=== PATIENT | female | born 1955 | race Two or more races ===

== ENCOUNTER → 2019-01-08 | Outpatient (CLI) | payer OTHER ==
[2019-01-08 14:59] LABS: Basophils # (auto) 0.1 uL; Eosinophils # (auto) 0.3 uL; Lymphocytes # (auto) 2.8 uL; Monocytes # (auto) 0.7 uL; Nucleated Red Blood Cells % 0.1 %
[2019-01-08 15:01] LABS: Basophils % (auto) 0.6 % (0.0-2.0); Eosinophils % (auto) 3.2 % (0.0-7.0); Hemoglobin 15.1 g/dL (12.2-16.2); Lymphocytes % (auto) 31.1 % (10.0-50.0); Mean Corpuscular Hgb Conc. 35.1 g/dL (32.0-36.0); Mean Corpuscular Volume 99.8 fL (80.0-100.0); Monocytes % (auto) 8.4 % (0.0-12.0); Neutrophils % (auto) 56.7 % (37.0-80.0); Platelet Count (auto) 211 10^3/uL (140-450); Red Blood Cells 4.31 10^6/uL (4.0-5.20); Red Cell Distribution Width 12.6 % (11.8-14.3); White Blood Cell 8.9 10^3/uL (4.4-10.8)
[2019-01-08 15:20] LABS: Calcium 9.5 mg/dL (8.5-10.1)
[2019-01-08 15:25] LABS: Bilirubin, Total 0.7 mg/dL (0.2-1.0); Total Protein 8.2 g/dL (6.4-8.2)
== END | disposition home or self-care (01) ==
LOC: LAB 14:48
PROVIDERS: ATTEND Physician Assistant
DX: K21.9 Gastro-esophageal reflux disease without esophagitis (principal); R14.0 Abdominal distension (gaseous); I10 Essential (primary) hypertension; Z83.3 Family history of diabetes mellitus; Z83.49 Family history of other endocrine, nutritional and metabolic diseases
CPT/HCPCS: 36415; 80053; 80061; 83036; 84443; 85025

== ENCOUNTER → 2020-01-29 | Outpatient (CLI) | payer OTHER ==
[2020-01-29 14:39] LABS: Basophils # (auto) 0.1 10 ^3/uL (0-0.2); Basophils % (auto) 0.7 % (0.0-2.0); Eosinophils # (auto) 0.4 10 ^3/uL (0-0.8); Lymphocytes # (auto) 2.9 10 ^3/uL (0.4-5.4); Monocytes # (auto) 0.9 10 ^3/uL (0-1.3); Nucleated Red Blood Cells % 0.1 %
[2020-01-29 14:41] LABS: Hemoglobin 14.4 g/dL (12.2-16.2); Lymphocytes % (auto) 30.2 % (10.0-50.0); Mean Corpuscular Hemoglobin 35.1 pg (28.0-32.0); Mean Corpuscular Hgb Conc. 34.3 g/dL (32.0-36.0); Mean Corpuscular Volume 102.2 fL (80.0-100.0); Monocytes % (auto) 9.5 % (0.0-12.0); Neutrophils # (auto) 5.4 10 ^3/uL (1.6-8.6); Neutrophils % (auto) 55.6 % (37.0-80.0); Platelet Count (auto) 199 10^3/uL (140-450); Red Blood Cells 4.11 10^6/uL (4.0-5.20); Red Cell Distribution Width 12.7 % (11.8-14.3); White Blood Cell 9.7 10^3/uL (4.4-10.8)
[2020-01-29 14:55] LABS: Urine Bacteria NONE SEEN /hpf (None Seen); Urine Blood Negative /uL (Negative); Urine Specific Gravity 1.002 (1.001-1.035); Urine WBC 2 /hpf (0 - 5)
[2020-01-29 15:14] LABS: Albumin 3.7 g/dL (3.4-5.0); Calcium 9.2 mg/dL (8.5-10.1); Potassium 4.3 mmol/L (3.5-5.1)
[2020-01-29 15:19] LABS: BUN/Creatinine Ratio 11.3; Bilirubin, Total 0.6 mg/dL (0.2-1.0)
== END | disposition home or self-care (01) ==
LOC: LAB 14:27
PROVIDERS: ATTEND Physician Assistant
DX: Z00.00 Encounter for general adult medical examination without abnormal findings (principal); E11.9 Type 2 diabetes mellitus without complications; I10 Essential (primary) hypertension; E78.49 Other hyperlipidemia; K76.0 Fatty (change of) liver, not elsewhere classified; Z83.49 Family history of other endocrine, nutritional and metabolic diseases
CPT/HCPCS: 36415; 80053; 80061; 81001; 83036; 85025

== ENCOUNTER → 2022-08-15 | Outpatient (CLI) | payer OTHER ==
[2022-08-15 07:14] LABS: Eosinophils # (auto) 0.4 10 ^3/uL (0-0.8); Hemoglobin 15.1 g/dL (12.2-16.2); Neutrophils # (auto) 3.5 10 ^3/uL (1.6-8.6); Nucleated Red Blood Cells % 0.1 %; White Blood Cell 6.9 10^3/uL (4.4-10.8)
[2022-08-15 07:16] LABS: Basophils # (auto) 0 10 ^3/uL (0-0.2); Basophils % (auto) 0.7 % (0.0-2.0); Eosinophils % (auto) 5.4 % (0.0-7.0); Hematocrit 45.3 % (36.0-46.0); Lymphocytes # (auto) 2.3 10 ^3/uL (0.4-5.4); Lymphocytes % (auto) 33.4 % (10.0-50.0); Mean Corpuscular Hemoglobin 34.2 pg (28.0-32.0); Mean Corpuscular Hgb Conc. 33.4 g/dL (32.0-36.0); Mean Corpuscular Volume 102.5 fL (80.0-100.0); Monocytes # (auto) 0.7 10 ^3/uL (0-1.3); Monocytes % (auto) 9.9 % (0.0-12.0); Neutrophils % (auto) 50.6 % (37.0-80.0); Red Blood Cells 4.42 10^6/uL (4.0-5.20); Red Cell Distribution Width 12.8 % (11.8-14.3)
[2022-08-15 13:54] LABS: Albumin 3.8 g/dL (3.4-5.0); Bilirubin, Total 0.5 mg/dL (0.2-1.0); Calcium 9.9 mg/dL (8.5-10.1); Potassium 4.7 mmol/L (3.5-5.1); Total Protein 8.1 g/dL (6.4-8.2)
[2022-08-15 14:20] LABS: BUN/Creatinine Ratio 12.5
== END | disposition home or self-care (01) ==
LOC: LAB 06:49
PROVIDERS: ATTEND Nurse Practitioner Family
DX: Z00.00 Encounter for general adult medical examination without abnormal findings (principal); I10 Essential (primary) hypertension; E78.49 Other hyperlipidemia; E11.9 Type 2 diabetes mellitus without complications
CPT/HCPCS: 36415; 80053; 80061; 82043; 82274; 83036; 84439; 84443; 85025

== ENCOUNTER → 2023-08-18 | Outpatient (CLI) | payer OTHER ==
[2023-08-18 15:37] LABS: Basophils # (auto) 0.1 10 ^3/uL (0-0.2); Eosinophils # (auto) 0.2 10 ^3/uL (0-0.8); Eosinophils % (auto) 2.1 % (0.0-7.0); Hematocrit 44.3 % (36.0-46.0); Lymphocytes # (auto) 3.4 10 ^3/uL (0.4-5.4); Mean Corpuscular Hemoglobin 34.4 pg (28.0-32.0); Mean Corpuscular Hgb Conc. 33.9 g/dL (32.0-36.0); Mean Corpuscular Volume 101.7 fL (80.0-100.0); Monocytes % (auto) 9.7 % (0.0-12.0); Neutrophils # (auto) 5.3 10 ^3/uL (1.6-8.6); Neutrophils % (auto) 53.2 % (37.0-80.0); Nucleated Red Blood Cells % 0.1 %; Red Blood Cells 4.36 10^6/uL (4.0-5.20); Red Cell Distribution Width 13.1 % (11.8-14.3); White Blood Cell 9.9 10^3/uL (4.4-10.8)
[2023-08-18 16:25] LABS: Alanine Aminotransferase 41 U/L (7-40); Alkaline Phosphatase 102 U/L (46-116); Anion Gap 9 (5-15); Aspartate Aminotransferase 32 U/L (13-40); BUN/Creatinine Ratio 8.8 (10.0-20.0); Bilirubin, Total 0.7 mg/dL (0.2-1.0); Blood Urea Nitrogen 8 mg/dL (9-23); Calcium 10.2 mg/dL (8.5-10.1); Carbon Dioxide 26 mmol/L (20-30); Chloride 101 mmol/L (98-107); Cholesterol 149 mg/dL (< 200); Glucose 66 mg/dL (74-106); HDL Cholesterol 59 mg/dL (40-59); LDL Cholesterol 77 mg/dL (< 100); Potassium 4.1 mmol/L (3.5-5.1); Sodium 136 mmol/L (136-145); Triglycerides 112 mg/dL (< 150)
== END | disposition home or self-care (01) ==
LOC: LAB 15:24
DX: I10 Essential (primary) hypertension (principal); E11.9 Type 2 diabetes mellitus without complications
CPT/HCPCS: 36415; 80053; 80061; 83036; 84439; 84443; 85025

== ENCOUNTER → 2024-09-30 | Outpatient (CLI) | payer OTHER ==
[2024-09-30 15:14] LABS: Basophils % (auto) 0.6 % (0.0-2.0); Eosinophils # (auto) 0.2 10 ^3/uL (0-0.8); Lymphocytes # (auto) 2.4 10 ^3/uL (0.4-5.4); Monocytes # (auto) 0.8 10 ^3/uL (0-1.3); Neutrophils % (auto) 58.1 % (37.0-80.0); White Blood Cell 8.2 10^3/uL (4.4-10.8)
[2024-09-30 15:16] LABS: Basophils # (auto) 0.1 10 ^3/uL (0-0.2); Eosinophils % (auto) 2.3 % (0.0-7.0); Hematocrit 44.6 % (36.0-46.0); Hemoglobin 15.1 g/dL (12.2-16.2); Lymphocytes % (auto) 29.5 % (10.0-50.0); Mean Corpuscular Hemoglobin 34.3 pg (28.0-32.0); Mean Corpuscular Hgb Conc. 33.9 g/dL (32.0-36.0); Mean Corpuscular Volume 101.4 fL (80.0-100.0); Monocytes % (auto) 9.5 % (0.0-12.0); Neutrophils # (auto) 4.8 10 ^3/uL (1.6-8.6); Platelet Count (auto) 201 10^3/uL (140-450)
[2024-09-30 15:44] LABS: Micro Albumin < 3.0 mg/L (<30.0)
[2024-09-30 15:46] LABS: Alanine Aminotransferase 39 U/L (7-40); Albumin 4.8 g/dL (3.2-4.8); Alkaline Phosphatase 110 U/L (46-116); Anion Gap 11 (5-15); Aspartate Aminotransferase 35 U/L (13-40); BUN/Creatinine Ratio 12.4 (10.0-20.0); Bilirubin, Total 0.6 mg/dL (0.2-1.0); Blood Urea Nitrogen 11 mg/dL (9-23); Calcium 10.3 mg/dL (8.7-10.4); Carbon Dioxide 24 mmol/L (20-31); Chloride 101 mmol/L (98-107); Cholesterol 155 mg/dL (< 200); Glucose 78 mg/dL (74-106); HDL Cholesterol 60 mg/dL (40-59); LDL Cholesterol 82 mg/dL (< 100); Potassium 4.5 mmol/L (3.5-5.1); Total Protein 7.8 g/dL (5.7-8.2)
[2024-09-30 15:48] LABS: Sodium 136 mmol/L (136-145); Triglycerides 179 mg/dL (< 150)
== END | disposition home or self-care (01) ==
LOC: LAB 14:52
PROVIDERS: ATTEND Nurse Practitioner Family
DX: I10 Essential (primary) hypertension (principal); E11.9 Type 2 diabetes mellitus without complications
CPT/HCPCS: 36415; 80053; 80061; 82043; 82306; 82570; 83036; 84443; 85025

== ENCOUNTER 2025-06-11 18:22 | Inpatient (IN) | payer MEDICARE, OTHER ==
[~2025-06-11] VITALS: Ht 147.3 cm; Wt 62.6 kg
[~2025-06-11 18:22] MED LIST: METF-370 PO
--- NOTE | 2025-06-11 18:30 | ED.PDOC ---
HPI Comments HPI: 70 year old female presents to the ED via EMS with a chief complaint of chest pain onset today (06/11/25) about 1 hour prior to ED arrival. Per EMS, patient was home, had just ate dinner when she began experiencing substernal, chest pain radiating to her neck. Prior to EMS arrival patient took Aspirin 324 mg, was given 50 mcg Fentanyl in route to ED. Initial chest pain was a 10/10, currently a 7/10 after medication. Patient describes pain as a pressure sensation. Denies shortness of breath, dizziness, fever, chills, cough, cold, congestion, abdominal pain, nausea, vomiting, numbness/tingling. No other symptoms or modifying factors present at this time. Initial Vitals BP: 167/103 HR: 84 RR: 16 O2 Sat: 100% Past Medical history: HTN, HLD, DM, thyroid disease Past Surgical history: Denies Medications: Amlodipine, metformin, lisinopril, Jardiance Social History: Denies smoking, ETOH, and drug use. Allergies: NKDA michelle: cp to neck. HPI: Poor Historian. REVIEW OF SYSTEMS: CONSTITUTIONAL: Denies acute: fever, diaphoresis, chills, HEAD: Denies acute: headache, photophobia Eyes: Denies acute: Double vision, vision loss, eye pain, eye discharge. EARS: Denies acute: tinnitus, hearing loss, ear discharge, ear pain, THROAT: Denies acute: sore throat, swelling, difficulty swallowing , pain with swallowing, change in voice. NECK: Denies acute: neck pain, neck swelling, stiff neck. HEART: Denies acute : palpitations, LUNGS: Denies acute: SOB, wheezing, cough, hemoptysis ABDOMEN: Denies acute: abdominal pain, Nausea, Vomiting, diarrhea, melena , hematemesis, hematochezia SKIN: Denies acute: rash, redness, lesions, itchiness. EXTREMITIES: Denies acute: calf pain, numbness, tingling, weakness, denies pain in extremity. Denies acute: Low back pain. Neuro: Denies acute: focal neurological deficit, motor or sensory focal neurological deficit, tremors, seizure like activity, confusion, dizziness, change in mental status, loss of bowel or bladder function, cauda equina like symptoms. : Denies acute: dysuria, hematuria, flank pain, increase in urinary frequency. PSYCH: Denies acute: hallucination, suicidal ideation, homicidal ideation. FEMALE: Denies acute: abnormal vaginal bleeding, foul odor, unusual discharge. PHYSICAL EXAM: General: -----moderate---acute distress, awake and alert. Head: normocephalic, atraumatic. Neck: supple, trachea is midline, no swelling. Throat: Normal phonation. Eyes:, no erythema, no purulent discharge, no proptosis, no icterus. Heart: regular rate, regular rhythm, no significant murmur appreciated. Lungs: no apparent respiratory distress, Able to speak in full sentences. No wheezing, no rhonchi, no crackles. No stridors Clear to auscultation bilaterally. Abdomen: non tender to palpation, non distended, soft, no guarding, no rebound, + bowel sounds. Neuro: Awake, Alert, oriented to name, self, situation, follows commands GCS=15. Speech is normal. Skin: no petechia, no purpura, no cyanosis, non-pale, not jaundice. Lower extremities: --no - Pitting edema no deformity, no focal swelling, no calf TTP. Makes eye contact. moves all four extremities. Face: no apparent facial droop. ED COURSE: DISCLAIMER: This medical document was created using an electronic medical record system with voice recognition software and computerized dictation system. Although this document has been carefully reviewed, there might still be some phonetic and typographical errors. Occasional wrong-word or "sound-alike" substitutions may have occurred due to the inherent limitations of voice recognition software. These areas are purely typographical due to imperfections of the software programs and do not reflect any compromise in the patient's medical care. Please read the chart carefully and recognize, using context, where these substitutions have occurred. Time Seen by MD: 18:25 Reviewed Notes: Medications, Allergies Allergies: Coded Allergies: NO KNOWN ALLERGIES (Unverified , 06/11/25) Information Source: Patient, Emergency Med Personnel Mode of Arrival: EMS Severity: Moderate Timing: Hours Duration: Since onset Prehospital treatment: Pain Meds (50 mcg Fentanyl) Location: Substernal Radiation: Neck Quality: Pressure Onset: At Rest Cardiac Risk Factors: Hyperlipidemia, HTN, Diabetes PE Risk Factors: None History of: Aspirin Modifying Factors: Nothing Past Medical History PAST MEDICAL HISTORY: DM, High Lipids, HTN, Thyroid Surgical History: Denies all surgeries SALES TRAINING REPRESENTATIVE History: No Pertinent SALES TRAINING REPRESENTATIVE History Family History Family History: Reviewed,noncontributory to illness, No family hx of Cancer, No family hx of DM, No family hx of Heart nicole, No family hx of HTN, No family hx ofKidney nicole, No family hx of Liver nicole, No family hx of Lung nicole, No family hx of Stroke Social History Smoker: Non-Smoker Alcohol: Denies ETOH Use Drugs: Denies Drug Use Lives In: Home Was a procedure done? Was a procedure done?: No X-Ray, Labs, Meds, VS Vital Signs Date Time Temp Pulse Resp B/P (MAP) Pulse Ox O2 Delivery O2 Flow Rate FiO2 06/11/25 19:23 92 06/11/25 19:11 158/86 06/11/25 18:35 91 18 95 Room Air* 0 21 06/11/25 18:35 97.8 91 18 158/79 (105) 96 97.8 06/11/25 18:24 93 06/11/25 18:22 97.8 84 16 167/103 100 97.8 Lab Test 06/11/25 18:51 Range/Units White Blood Count 6.8 4.4-10.8 10^3/uL Red Blood Count 4.12 4.0-5.20 10^6/uL Hemoglobin 14.2 12.2-16.2 g/dL Hematocrit 41.4 36.0-46.0 % Mean Corpuscular Volume 100.5 H 80.0-100.0 fL Mean Corpuscular Hemoglobin 34.4 H 28.0-32.0 pg Mean Corpuscular Hemoglobin Concent 34.2 32.0-36.0 g/dL Red Cell Distribution Width 13.1 11.8-14.3 % Platelet Count 174 140-450 10^3/uL Mean Platelet Volume 9.7 6.9-10.8 fL Neutrophils (%) (Auto) 58.0 37.0-80.0 % Lymphocytes (%) (Auto) 26.9 10.0-50.0 % Monocytes (%) (Auto) 10.1 0.0-12.0 % Eosinophils (%) (Auto) 4.3 0.0-7.0 % Basophils (%) (Auto) 0.7 0.0-2.0 % Neutrophils # (Auto) 4.0 1.6-8.6 10 ^3/uL Lymphocytes # (Auto) 1.8 0.4-5.4 10 ^3/uL Monocytes # (Auto) 0.7 0-1.3 10 ^3/uL Eosinophils # (Auto) 0.3 0-0.8 10 ^3/uL Basophils # (Auto) 0 0-0.2 10 ^3/uL Nucleated Red Blood Cells 0.2 % Sodium Level Pending Potassium Level Pending Chloride Level Pending Carbon Dioxide Level Pending Anion Gap Pending Blood Urea Nitrogen Pending Creatinine Pending Glomerular Filtration Rate Calc Pending BUN/Creatinine Ratio Pending Serum Glucose Pending Calcium Level Pending Total Bilirubin Pending Aspartate Amino Transferase (AST) Pending Alanine Aminotransferase (ALT) Pending Alkaline Phosphatase Pending Troponin I High Sensitivity Pending B-Type Natriuretic Peptide 53.55 0-100 pg/mL Total Protein Pending Albumin Pending Current Medications Medications (Trade) Dose Ordered Sig/Reggie Route Start Time Stop Time Status Last Admin Nitroglycerin (Ntrostat Sublingual) 0.4 mg ONCE ONCE SL 06/11/25 19:00 06/11/25 19:01 DC 06/11/25 19:11 Sodium Chloride 1,000 ml @ 1,000 mls/hr Q1H ONCE IV 06/11/25 19:00 06/11/25 19:59 06/11/25 19:12 [place] [id number] Ph: [phone] DIAGNOSTIC IMAGING Diagnostic Imaging Report : [id number] Signed PATIENT: CAS CORTEZ ACCT: [id number] UNIT: [id number] : 1955 LOC: ER ROOM / BED: / AGE / SEX: 70 / F ADM STATUS: REG ER SERVICE 26 ORDERING PHYSICIAN: ALEXANDRE SINGH DO PROCEDURE(s): CXRP - CHEST PORTABLE REASON: cp ORDER NUMBER(s): [id number], ACCESSION NUMBER(s): [id number] CHEST RADIOGRAPH REASON FOR EXAM: Chest pain COMPARISON: XY CHEST TWO VIEWS ROUTINE on DOS: 07/07/24, CXR2 on DOS: 02/02/22, CHEST TWO VIEWS ROUTINE on DOS: 02/02/22, CHEST TWO VIEWS ROUTINE on DOS: 02/06/21 TECHNIQUE: One view of the chest is provided FINDINGS: The cardiomediastinal silhouette is borderline enlarged. There is pulmonary venous congestion. There is no significant pleural effusion. There is mild pulmonary edema. There is no lobar consolidation. There is no pneumothorax. No acute osseous abnormality is identified. IMPRESSION: Borderline cardiomegaly. Mild pulmonary edema. Correlate clinically for possible cardiac decompensation. ATED BY: INDIO HAMILTON MD DICTATED DATE/TIME: 06/11/251923 SIGNED BY: INDIO HAMILTON MD SIGNED DATE/TIME: 06/11/251923 CC: Time of 1ST Reevaluation: 18:55 Reevaluation 1ST: Unchanged Patient Education/Counseling: Diagnosis, Treatment Family Education/Counseling: No Family Present Departure 1 Departure Time of Disposition: 18:48 Impression: Primary Impression: Chest pain Disposition: ADMITTED INPATIENT Admit to: Tele Condition: Guarded Discharged With: Self Critical Care Note Critical Care Time?: No I personally scribed for ALEXANDRE SINGH DO ([email or web address]) on 06/11/25 at 18:30. Electronically submitted by Venessa Sullivan ([email or web address]). I personally scribed for ALEXANDRE SINGH DO ([email or web address]) on 06/11/25 at 19:29. Electronically submitted by Venessa Sullivan ([email or web address]). ALEXANDRE SINGH DO Jun 11, 2025 18:30
[2025-06-11 18:35] VITALS: PULSE 91; RESP 18; O2SAT 95
--- NOTE | 2025-06-11 19:03 | ECG ---
[facility] Test Date: 2025-06-11 Test Time: 18:24:17 Pat Name: CAS CORTEZ Department: [facility] ED Patient ID: [facility]-[id number] Room: Gender: F Automatic Clipper And Stripper: KYLIE : 1955 Requested By: ALEXANDRE SINGH Order Number: [id number] Reading MD: Measurements Intervals [place] Rate: 93 P: 79 HI: 143 QRS: 82 QRSD: 92 T: 77 QT: 350 QTc: 436 Interpretive Statements Sinus rhythm Borderline right axis deviation Low voltage, precordial leads Please click the below link to view image of tracing.
[2025-06-11 19:06] LABS: Hematocrit 41.4 % (36.0-46.0); Hemoglobin 14.2 g/dL (12.2-16.2); Mean Corpuscular Hemoglobin 34.4 pg (28.0-32.0); Mean Corpuscular Volume 100.5 fL (80.0-100.0); Nucleated Red Blood Cells % 0.2 %
[2025-06-11] MEDS: NITROGLYCERIN 0.4 MG SL TAB SL ONE (19:11)
[2025-06-11] MEDS: SODIUM CHLORIDE 0.9% 1,000 ML IV ONE (19:12)
[2025-06-11 19:25] LABS: Albumin 4.3 g/dL (3.2-4.8); Anion Gap 13 (5-15); BUN/Creatinine Ratio 10.6 (10.0-20.0); Blood Urea Nitrogen 11 mg/dL (9-23); Calcium 9.0 mg/dL (8.7-10.4); Carbon Dioxide 22 mmol/L (20-31); Chloride 101 mmol/L (98-107); Potassium 3.7 mmol/L (3.5-5.1); Sodium 136 mmol/L (136-145); Total Protein 7.2 g/dL (5.7-8.2)
--- NOTE | 2025-06-11 19:27 | DVH ---
CHEST RADIOGRAPH REASON FOR EXAM: Chest pain COMPARISON: XY CHEST TWO VIEWS ROUTINE on DOS: 07/07/24, CXR2 on DOS: 02/02/22, CHEST TWO VIEWS ROUTIN E on DOS: 02/02/22, CHEST TWO VIEWS ROUTINE on DOS: 02/06/21 TECHNIQUE: One view of the chest is provided FINDINGS: The cardiomediastinal silhouette is borderline enlarged. There is pulmonary venous congest ion. There is no significant pleural effusion. There is mild pulmonary edema. There is no lobar con solidation. There is no pneumothorax. No acute osseous abnormality is identified. IMPRESSION: Borderline cardiomegaly. Mild pulmonary edema. Correlate clinically for possible cardiac decompensa tion.
[2025-06-11 19:32] LABS: Alanine Aminotransferase 43 U/L (7-40); Alkaline Phosphatase 133 U/L (46-116); Bilirubin, Total 0.2 mg/dL (0.2-1.0); Glucose 312 mg/dL (74-106)
--- NOTE | 2025-06-11 19:46 | ECG ---
[facility] Test Date: 2025-06-11 Test Time: 19:23:08 Pat Name: CAS CORTEZ Department: [facility] ED Patient ID: [facility]-[id number] Room: Gender: F Director Of Surgery: MARY : 1955 Requested By: ALEXANDRE SINGH Order Number: [id number] Reading MD: Measurements Intervals [place] Rate: 92 P: 81 [place]: 142 QRS: -34 QRSD: 97 T: -32 QT: 377 QTc: 467 Interpretive Statements Sinus rhythm Left axis deviation Low voltage, precordial leads Repol abnrm, severe global ischemia (LM/MVD) Please click the below link to view image of tracing.
[2025-06-11] MEDS ORDERED: NITROGLYCERIN 0.4 MG SL TAB SL PRN (20:00)
[2025-06-11] MEDS ORDERED: DEXTROSE (50%) 50ML SYRG IV PRN (20:30)
[2025-06-11] MEDS: MORPHINE SULFATE INJ 2 MG/ml SYRG IV PRN (21:17)
[2025-06-11 21:20] VITALS: BP 119/63; PULSE 97; RESP 18; TEMP 97.9; O2SAT 96
[2025-06-11 21:48] LABS: Urine Protein, UAD Negative (Negative)
[2025-06-11] MEDS: ATORVASTATIN 20 MG TAB PO SCH (22:14)
[2025-06-11] MEDS ORDERED: BENZ100C97 PO (22:31)
[2025-06-11] MEDS ORDERED: LOVA10TA54 PO (22:31)
[2025-06-11] MEDS ORDERED: LOS25T PO (22:31)
[2025-06-11] MEDS ORDERED: EMPA1TAB PO (22:31)
[2025-06-11] MEDS ORDERED: DOCU-265 PO (22:31)
[2025-06-11] MEDS ORDERED: AMLO1TAB23 PO (22:31)
[2025-06-11] MEDS ORDERED: GLIP10TA9 PO (22:31)
[2025-06-11] MEDS: ACCU-CHEK COMFORT CURVE STRIP VI SCH (23:27)
[2025-06-11] MEDS: InsuLIN REG 1unit/0.01ml Soln (100units/ml) SC SCH (23:29)
[2025-06-12] VITALS (7 sets, daily range): BP systolic 105–121; BP diastolic 67–78; PULSE 89–114; RESP 16–18; TEMP 97.6–98.2; O2SAT 95–99
--- NOTE | 2025-06-12 00:13 | DVHHP2 ---
History of Present Illness Reason for Visit: Chest pain History of Present Illness 70-year-old female presents for evaluation of chest pain. Patient reports a one month history of intermittent chest pain. She states today symptoms became more constant so she presented for further evaluation. She distress the pain as substernal pressure-like with radiation to her neck. Denies shortness or breath, nausea or vomiting. No cough or fever. No other acute complaints reported. Past Medical History Dyslipidemia, diabetes mellitus, hypertension Past Surgical History Denies Family History Noncontributory Smoke: No ALCOHOL: none Drugs: None Lives: with Family Review of Systems Review of Systems Review of systems are currently negative otherwise addressed in HPI. Allergies: Coded Allergies: NO KNOWN ALLERGIES (Unverified , 06/11/25) Medications Current Medications Medications Dose Ordered Sig/Reggie Route Start Time Stop Time Status Last Admin Dose Admin Nitroglycerin 0.4 mg Q5MINP PRN SL 06/11/25 20:00 Morphine Sulfate 2 mg Q30M PRN IV 06/11/25 20:00 06/11/25 21:17 2 MG Aspirin 162 mg DAILY PO 06/12/25 10:00 Atorvastatin Calcium 10 mg HS PO 06/11/25 22:00 06/11/25 22:14 10 MG Empaglifozin 10 mg DAILY PO 06/12/25 10:00 Amlodipine Besylate 10 mg DAILY PO 06/12/25 10:00 Losartan Potassium 25 mg DAILY PO 06/12/25 10:00 Diagnostic Test (Pha) 1 strip Q6HR 06/12/25 00:00 06/11/25 23:27 1 STRIP Insulin Human Regular Q6HR SC 06/12/25 00:00 06/11/25 23:29 8 UNITS Dextrose 50 ml UD PRN IV 06/11/25 20:30 Ondansetron HCl 4 mg Q4HP PRN IV 06/11/25 20:30 Acetaminophen 650 mg Q6HP PRN PO 06/11/25 20:30 Exam Vital Signs Vital Signs Date Time Temp Pulse Resp B/P (MAP) Pulse Ox O2 Delivery O2 Flow Rate FiO2 06/11/25 21:47 97 18 119/63 06/11/25 21:20 97.9 96 97.9 06/11/25 21:20 Room Air* 0 21 Exam Gen: 70-year-old female in mild distress Skin: Warm, dry, normal color and texture, no rash. HEENT: Normocephalic atraumatic, mucous membranes moist and pink. Neck: Cervical and supraclavicular nodes normal without enlargement, trachea is midline, thyroid gland is normal without masses. Pulmonary: Clear to auscultation and percussion bilaterally. Cardiac: Regular rate and rhythm. No murmur Abdomen: Soft, nontender, nondistended, bowel sounds present all 4 quadrants, no guarding, no rigidity, no organomegaly. Extremities: No cyanosis, clubbing, no edema Neuro: Cranial nerves II through XII grossly intact, normal affect and speech, no focal motor deficits. Labs/Xrays ORDERING PHYSICIAN: ALEXANDRE SINGH DO PROCEDURE(s): CXRP - CHEST PORTABLE REASON: cp ORDER NUMBER(s): [id number], ACCESSION NUMBER(s): [id number] CHEST RADIOGRAPH REASON FOR EXAM: Chest pain COMPARISON: XY CHEST TWO VIEWS ROUTINE on DOS: 07/07/24, CXR2 on DOS: 02/02/22, CHEST TWO VIEWS ROUTINE on DOS: 02/02/22, CHEST TWO VIEWS ROUTINE on DOS: 02/06/21 TECHNIQUE: One view of the chest is provided FINDINGS: The cardiomediastinal silhouette is borderline enlarged. There is pulmonary venous congestion. There is no significant pleural effusion. There is mild pulmonary edema. There is no lobar consolidation. There is no pneumothorax. No acute osseous abnormality is identified. IMPRESSION: Borderline cardiomegaly. Mild pulmonary edema. Correlate clinically for possible cardiac decompensation. Labs Test 06/11/25 23:23 06/11/25 22:19 06/11/25 18:51 06/11/25 18:27 Range/Units POC Glucose 329 H 70-106 mg/dl Troponin I High Sensitivity 353 *H </=34 ng/L White Blood Count 6.8 4.4-10.8 10^3/uL Red Blood Count 4.12 4.0-5.20 10^6/uL Hemoglobin 14.2 12.2-16.2 g/dL Hematocrit 41.4 36.0-46.0 % Mean Corpuscular Volume 100.5 H 80.0-100.0 fL Mean Corpuscular Hemoglobin 34.4 H 28.0-32.0 pg Mean Corpuscular Hemoglobin Concent 34.2 32.0-36.0 g/dL Red Cell Distribution Width 13.1 11.8-14.3 % Platelet Count 174 140-450 10^3/uL Mean Platelet Volume 9.7 6.9-10.8 fL Neutrophils (%) (Auto) 58.0 37.0-80.0 % Lymphocytes (%) (Auto) 26.9 10.0-50.0 % Monocytes (%) (Auto) 10.1 0.0-12.0 % Eosinophils (%) (Auto) 4.3 0.0-7.0 % Basophils (%) (Auto) 0.7 0.0-2.0 % Neutrophils # (Auto) 4.0 1.6-8.6 10 ^3/uL Lymphocytes # (Auto) 1.8 0.4-5.4 10 ^3/uL Monocytes # (Auto) 0.7 0-1.3 10 ^3/uL Eosinophils # (Auto) 0.3 0-0.8 10 ^3/uL Basophils # (Auto) 0 0-0.2 10 ^3/uL Nucleated Red Blood Cells 0.2 % Sodium Level 136 136-145 mmol/L Potassium Level 3.7 3.5-5.1 mmol/L Chloride Level 101 98-107 mmol/L Carbon Dioxide Level 22 20-31 mmol/L Anion Gap 13 5-15 Blood Urea Nitrogen 11 9-23 mg/dL Creatinine 1.04 H 0.550-1.02 mg/dL Glomerular Filtration Rate Calc 59 >90 mL/min BUN/Creatinine Ratio 10.6 10.0-20.0 Serum Glucose 312 H 74-106 mg/dL Calcium Level 9.0 8.7-10.4 mg/dL Total Bilirubin 0.2 0.2-1.0 mg/dL Aspartate Amino Transferase (AST) 42 H 13-40 U/L Alanine Aminotransferase (ALT) 43 H 7-40 U/L Alkaline Phosphatase 133 H 46-116 U/L B-Type Natriuretic Peptide 53.55 0-100 pg/mL Total Protein 7.2 5.7-8.2 g/dL Albumin 4.3 3.2-4.8 g/dL Urine Color Colorless Yellow Urine Clarity Clear Clear Urine pH 5.5 5.0-9.0 Urine Specific [place] 1.020 1.001-1.035 Urine Protein Negative Negative Urine Ketones Negative Negative Urine Blood Negative Negative /uL Urine Nitrite Negative Negative Urine Bilirubin Negative Negative Urine Urobilinogen Normal Negative mg/dL Urine Leukocyte Esterase Negative Negative /uL Urine RBC <1 0 - 4 /hpf Urine Microscopic WBC 1 0-5 /HPF Urine Squamous Epithelial Cells Few <5 /hpf Urine Bacteria None seen None Seen /hpf Urine Glucose 4+ H Normal mg/dL SEPSIS Sepsis Screen Date sepsis recognized/suspect: Jun 11, 2025 Time Sepsis recognized/suspect: 1908 Recent Procedure: No On Antibiotic Therapy: No Respiratory Rate >20: No Heart Rate >90: No Temp<36 C (96.8 F) or >38.3 C: No SBP <90 or MAP <65 mmHG: No New Acute Mental Status Change: No Is the patient on CPAP, BIPAP,: No Physician Orders Electrocardigram (06/11/25 21:26) Body Finisher (06/11/25 ) Chest Portable (06/11/25 18:27) Electrocardigram (06/11/25 18:27) Electrocardigram (06/11/25 19:27) Electrocardigram (06/11/25 21:27) Admit (06/11/25 19:59) Nitroglycerin Sublingual (Ntrostat Subli (06/11/25 20:00) Morphine Sulfate Injection (06/11/25 20:00) Stat Ekg For Chest Pain (06/11/25 19:59) Notify Md Of Changes From Base (06/11/25 19:59) Ballet Dancer For 24 Hours (06/11/25 19:59) Emergency Dysrhythmia Protocol (06/11/25 19:59) Rhythm Strips Once Every Shift (06/11/25 19:59) Oxygen By Nasal Cannula (06/11/25 19:59) * Cardiology Consult (06/11/25 20:23) Aspirin Tablet (06/12/25 10:00) Atorvastatin (Lipitor) (06/11/25 22:00) Empagliflozin (Jardiance) (06/12/25 10:00) Amlodipine Tablet (Norvasc Tablet) (06/12/25 10:00) Losartan Tablet (Cozaar Tablet) (06/12/25 10:00) Basic Metabolic Panel (06/12/25 04:00) Glucose Blood (Accu-Chek Comfort Curve T (06/12/25 00:00) Insulin R (Human) (Insulin R) (06/12/25 00:00) Dextrose 50% Syringe (06/11/25 20:30) Ondansetron Hcl (Zofran) (06/11/25 20:30) Cardiac Diet-2gna,Lofat,Lochol (06/12/25 Breakfast) Echo 2d Mode Cardiac Dop (06/11/25 20:23) Condition: Fair (06/11/25 20:23) Acetaminophen Tablet (Tylenol Tablet) (06/11/25 20:30) Bedrest With Bathroom Privileg (06/11/25 20:23) Thyroid Stimulating Hormone (06/12/25 00:09) Lipid Panel (06/12/25 00:09) Vital Signs Date Time Temp Pulse Resp B/P (MAP) Pulse Ox O2 Delivery O2 Flow Rate FiO2 06/11/25 21:47 97 18 119/63 06/11/25 21:20 97.9 97 18 119/63 (81) 96 97.9 06/11/25 21:20 97 18 96 Room Air* 0 21 06/11/25 21:17 101 18 140/81 06/11/25 21:07 97.8 101 18 140/81 (100) 99 97.8 06/11/25 20:11 125/68 06/11/25 20:00 97 06/11/25 20:00 87 18 125/68 (87) 97 06/11/25 19:30 Room Air* 0 21 06/11/25 19:23 92 06/11/25 19:11 158/86 06/11/25 19:09 97.7 88 20 158/86 (110) 96 97.7 06/11/25 18:35 91 18 95 Room Air* 0 21 06/11/25 18:35 97.8 91 18 158/79 (105) 96 97.8 06/11/25 18:24 93 06/11/25 18:22 97.8 84 16 167/103 100 97.8 Laboratory Tests Test 06/11/25 18:51 White Blood Count 6.8 10^3/uL (4.4-10.8) Medications Medications Dose Ordered Sig/Reggie Route Start Time Stop Time Status Last Admin Dose Admin Aspirin 162 mg ONCE ONCE PO 06/11/25 20:30 06/11/25 21:09 DC 06/11/25 20:30 162 MG Atorvastatin Calcium 10 mg HS PO 06/11/25 22:00 06/11/25 22:14 10 MG Diagnostic Test (Pha) 1 strip Q6HR 06/12/25 00:00 06/11/25 23:27 1 STRIP Insulin Human Regular Q6HR SC 06/12/25 00:00 06/11/25 23:29 8 UNITS Morphine Sulfate 2 mg Q30M PRN IV 06/11/25 20:00 06/11/25 21:17 2 MG Nitroglycerin 0.4 mg ONCE ONCE SL 06/11/25 19:00 06/11/25 19:01 DC 06/11/25 19:11 0.4 MG Sodium Chloride 1,000 ml @ 1,000 mls/hr Q1H ONCE IV 06/11/25 19:00 06/11/25 19:59 DC 06/11/25 19:12 1,000 MLS/HR Assessment/Plan Assessment/Plan Assessment Chest pain Elevated troponin rule out NSTEMI transaminitis Uncontrolled diabetes mellitus Acute kidney injury Plan Admit the patient to telemetry to the hospitalist Cardiology consultation ACS protocol Resume home medications Continue treatment per orders. Plan discussed with: Patient My Orders Orders - PATO TARANGO Procedure Category Date Status Time Admit ADMIT 06/11/25 Transmitted 19:59 Nitroglycerin PHA 06/11/25 In Process Sublingual (Ntrostat 20:00 Morphine Sulfate PHA 06/11/25 In Process Injection 20:00 Stat Ekg For Chest MARA 06/11/25 In Process Pain 19:59 Notify Of Changes MARA 06/11/25 In Process From Base 19:59 Ballet Dancer For MARA 06/11/25 In Process 24 Hours 19:59 Emergency Dysrhythmia MARA 06/11/25 In Process Protocol 19:59 Rhythm Strips Once MARA 06/11/25 In Process Every Shift 19:59 Oxygen By Nasal RT 06/11/25 Transmitted Cannula 19:59 * Cardiology Consult CONS 06/11/25 Transmitted 20:23 Aspirin Tablet PHA 06/12/25 In Process 10:00 Atorvastatin (Lipitor) PHA 06/11/25 In Process 22:00 Empagliflozin PHA 06/12/25 In Process (Jardiance) 10:00 Amlodipine Tablet PHA 06/12/25 In Process (Norvasc Tablet) 10:00 Losartan Tablet PHA 06/12/25 In Process (Cozaar Tablet) 10:00 Basic Metabolic Panel LAB 06/12/25 Logged 04:00 Glucose Blood PHA 06/12/25 In Process (Accu-Chek Comfort 00:00 Insulin R (Human) PHA 06/12/25 In Process (Insulin R) 00:00 Dextrose 50% Syringe PHA 06/11/25 In Process 20:30 Ondansetron Hcl PHA 06/11/25 In Process (Zofran) 20:30 Cardiac DIET 06/12/25 Transmitted Diet-2gna,Lofat,Lochol Breakfast Echo 2d Mode Cardiac US 06/11/25 Logged DOP 20:23 Condition: Fair MARA 06/11/25 In Process 20:23 Acetaminophen Tablet PHA 06/11/25 In Process (Tylenol Tablet) 20:30 Bedrest With Bathroom MARA 06/11/25 In Process Privileg 20:23 Thyroid Stimulating LAB 06/12/25 Verified Hormone 00:09 Lipid Panel LAB 06/12/25 Verified 00:09 Date of Service: Jun 11, 2025 Billing Provider: PATO TARANGO Common Visit Codes: [id number] INP/OBS CARE (HIGH) PATO TARANGO Jun 12, 2025 00:13
[2025-06-12 05:58] LABS: Chloride 104 mmol/L (98-107); Potassium 3.7 mmol/L (3.5-5.1); Sodium 140 mmol/L (136-145)
[2025-06-12 05:59] LABS: Anion Gap 12 (5-15); Calcium 9.1 mg/dL (8.7-10.4); Carbon Dioxide 24 mmol/L (20-31)
[2025-06-12 06:04] LABS: BUN/Creatinine Ratio 10.5 (10.0-20.0); Glucose 86 mg/dL (74-106)
[2025-06-12 06:09] LABS: Blood Urea Nitrogen 8 mg/dL (9-23)
[2025-06-12 06:24] LABS: Cholesterol 169 mg/dL (< 200); Triglycerides 215 mg/dL (< 150)
[2025-06-12 06:25] LABS: HDL Cholesterol 57 mg/dL (40-59)
--- NOTE | 2025-06-12 08:17 | DVHINCON2 ---
Date Seen: Jun 12, 2025 Referring Physician RICK Garcia Reason for Consultation Chest pain History of Present Illness This is a 70-year-old female who presented to the emergency room via EMS via EMS with a chief complaint of chest pain since 06/11/2025 at 4:00 p.m. Describes her chest pain as retrosternal, pressure-like, and radiating to the anterior neck area for which she called 911. EN route to the hospital she was medicated with ASA 324 mg and fentanyl 50 mcg x 1 with some relief of symptoms. She has undergone multiple 12 lead electrocardiograms revealing progressive ST-T-wave segment changes mostly to inferior leads. Serial troponin levels are trending up with latest > 2700s ng/L. Reports a significant familial history for cardiovascular disease including her mother with a CABG in her 70s y.o., father with myocardial infarction, and youngest sibling with PTCA and stent placement in his 40s y.o. Significant medical history includes hypertension, dyslipidemia, cdh-cbccktd-wcilykftk diabetes mellitus, and obesity. Past Medical History Past medical history reviewed. No other significant than mentioned above. Past Surgical History Past surgical history reviewed. No other significant than mentioned above. Family History: Cardiovascular disease G8 MOTHER G8 FATHER Diabetes mellitus G8 MOTHER Family History Family history reviewed. See HPI. Social History Denies the use of illicit drugs, alcohol, or tobacco use. Allergies: Coded Allergies: NO KNOWN ALLERGIES (Unverified , 06/11/25) Home Meds Reported Medications Docusate Sodium (Docusate Sodium) 100 Mg Cap, 1 CAP PO QHSP PRN for FOR CONSTIPATION 06/11/25 Losartan Potassium (Losartan Potassium) 25 Mg Tab, 1 TAB PO DAILY 06/11/25 Glipizide (Glipizide) 10 Mg Tab, 1 TAB PO BID 06/11/25 Benzonatate (Benzonatate) 100 Mg Cap, CAP PO 06/11/25 Lovastatin (Lovastatin) 10 Mg Tab, 1 TAB PO DAILY 06/11/25 Metformin Hydrochloride (Metformin Hcl) 500 Mg Tab, 2 TAB PO 06/11/25 Amlodipine Besylate (Amlodipine Besylate) 10 Mg Tab, 1 TAB PO DAILY 06/11/25 Empagliflozin (Jardiance) 10 Mg Tab, 1 TAB PO DAILY 06/11/25 Home Meds Home medications reviewed. Current Medications Current Medications Medications (Trade) Dose Ordered Sig/Reggie Route PRN Reason Start Time Stop Time Status Last Admin Nitroglycerin (Ntrostat Sublingual) 0.4 mg Q5MINP PRN SL FOR CHEST PAIN 06/11/25 20:00 Morphine Sulfate 2 mg Q30M PRN IV FOR CHEST PAIN 06/11/25 20:00 06/11/25 21:17 Aspirin 162 mg DAILY PO 06/12/25 10:00 Atorvastatin Calcium (Lipitor) 10 mg HS PO 06/11/25 22:00 06/11/25 22:14 Empaglifozin (Jardiance) 10 mg DAILY PO 06/12/25 10:00 Amlodipine Besylate (Norvasc Tablet) 10 mg DAILY PO 06/12/25 10:00 Losartan Potassium (Cozaar Tablet) 25 mg DAILY PO 06/12/25 10:00 Diagnostic Test (Pha) (Accu-Chek Comfort Curve T) 1 strip Q6HR 06/12/25 00:00 06/12/25 05:09 Insulin Human Regular (InsuLIN R) Q6HR SC 06/12/25 00:00 06/11/25 23:29 Dextrose 50 ml UD PRN IV Blood Sugar LESS THAN 60 06/11/25 20:30 Ondansetron HCl (Zofran) 4 mg Q4HP PRN IV NAUSEA / VOMITING 06/11/25 20:30 Acetaminophen (Tylenol Tablet) 650 mg Q6HP PRN PO PAIN SCALE 1-3 OR TEMP>100.4 06/11/25 20:30 Review of Systems Constitutional: No symptom reported Ears, Nose, & Throat: No symptom reported Eyes: No symptom reported Neurological: No symptoms reported Pulmonary/Respiratory: No symptom reported Cardiovascular: Chest pain Gastrointestinal: No symptom reported Genitourinary: No symptom reported Musculoskeletal: No symptom reported Skin: No symptom reported Psychiatric: No symptom reported Endocrine: No symptom reported Hemotologic/Lymphatic: No symptom reported Vital Signs Vital Signs Date Time Temp Pulse Resp B/P (MAP) Pulse Ox O2 Delivery O2 Flow Rate FiO2 06/12/25 05:00 98.2 105 18 118/73 (88) 98 98.2 06/11/25 21:20 Room Air* 0 21 Physical Exam General Appearance: Cooperative. Well developed. Obese. In no acute distress Head Exam: Normal inspection Neck Exam: Normal inspection. Non-tender. Normal alignment Pulmonary/Respiratory: Chest non-tender. Clear bilateral breath sounds Cardiovascular/Chest: Regular rate and rhythm. S1, S2. Sinus rhythm with significant ST-T wave segment changes. No murmurs. No JVD. Peripheral Pulses: 2+ Radial (R). 2+ Radial (L). 2+ Pedal (R). 2+ Pedal (L) Abdominal Exam: Normal bowel sounds. Soft. Nontender. No hepatospenomegaly. No masses Ankle Exam: Negative ankle edema Lower extremities: Negative lower extremity edema Neuro/Mental Status: A&O x4. Coherent Thoughts/Psych: Normal thought pattern. Appropriate mood and affect. Good judgement and insight Appearance: In no acute distress Skin Exam: Normal inspection. Normal color. Warm. Dry Labs/Diagnostic Data Labs Test 06/12/25 05:20 06/12/25 05:04 06/11/25 22:19 06/11/25 18:51 Range/Units Sodium Level 140 136-145 mmol/L Potassium Level 3.7 3.5-5.1 mmol/L Chloride Level 104 98-107 mmol/L Carbon Dioxide Level 24 20-31 mmol/L Anion Gap 12 5-15 Blood Urea Nitrogen 8 L 9-23 mg/dL Creatinine 0.76 0.550-1.02 mg/dL Glomerular Filtration Rate Calc 85 >90 mL/min BUN/Creatinine Ratio 10.5 10.0-20.0 Serum Glucose 86 74-106 mg/dL Calcium Level 9.1 8.7-10.4 mg/dL Triglycerides Level 215 H < 150 mg/dL Cholesterol Level 169 < 200 mg/dL LDL Cholesterol 95 < 100 mg/dL HDL Cholesterol 57 40-59 mg/dL Thyroid Stimulating Hormone (TSH) 1.55 0.55-4.78 uIU/mL POC Glucose 93 70-106 mg/dl Troponin I High Sensitivity 353 *H </=34 ng/L White Blood Count 6.8 4.4-10.8 10^3/uL Red Blood Count 4.12 4.0-5.20 10^6/uL Hemoglobin 14.2 12.2-16.2 g/dL Hematocrit 41.4 36.0-46.0 % Mean Corpuscular Volume 100.5 H 80.0-100.0 fL Mean Corpuscular Hemoglobin 34.4 H 28.0-32.0 pg Mean Corpuscular Hemoglobin Concent 34.2 32.0-36.0 g/dL Red Cell Distribution Width 13.1 11.8-14.3 % Platelet Count 174 140-450 10^3/uL Mean Platelet Volume 9.7 6.9-10.8 fL Neutrophils (%) (Auto) 58.0 37.0-80.0 % Lymphocytes (%) (Auto) 26.9 10.0-50.0 % Monocytes (%) (Auto) 10.1 0.0-12.0 % Eosinophils (%) (Auto) 4.3 0.0-7.0 % Basophils (%) (Auto) 0.7 0.0-2.0 % Neutrophils # (Auto) 4.0 1.6-8.6 10 ^3/uL Lymphocytes # (Auto) 1.8 0.4-5.4 10 ^3/uL Monocytes # (Auto) 0.7 0-1.3 10 ^3/uL Eosinophils # (Auto) 0.3 0-0.8 10 ^3/uL Basophils # (Auto) 0 0-0.2 10 ^3/uL Nucleated Red Blood Cells 0.2 % Total Bilirubin 0.2 0.2-1.0 mg/dL Aspartate Amino Transferase (AST) 42 H 13-40 U/L Alanine Aminotransferase (ALT) 43 H 7-40 U/L Alkaline Phosphatase 133 H 46-116 U/L B-Type Natriuretic Peptide 53.55 0-100 pg/mL Total Protein 7.2 5.7-8.2 g/dL Albumin 4.3 3.2-4.8 g/dL Test 06/11/25 18:27 Range/Units Urine Color Colorless Yellow Urine Clarity Clear Clear Urine pH 5.5 5.0-9.0 Urine Specific [place] 1.020 1.001-1.035 Urine Protein Negative Negative Urine Ketones Negative Negative Urine Blood Negative Negative /uL Urine Nitrite Negative Negative Urine Bilirubin Negative Negative Urine Urobilinogen Normal Negative mg/dL Urine Leukocyte Esterase Negative Negative /uL Urine RBC <1 0 - 4 /hpf Urine Microscopic WBC 1 0-5 /HPF Urine Squamous Epithelial Cells Few <5 /hpf Urine Bacteria None seen None Seen /hpf Urine Glucose 4+ H Normal mg/dL Assessment Acute myocardial infarction Rule out structural heart disease Pertinent family history for cardiovascular disease Pbi-lqgilsy-moxujflpk diabetes mellitus Hypertension Dyslipidemia Obesity Plan/Recommendation (Dr. Green) Case discussed in full detail with Dr. Green. Scheduled for urgent cardiac catheterization and coronary angiogram at first available. All risks and benefits of the procedure were discussed with the patient who agrees to proceed with intervention. All questions answered. In the meantime, initiate heparin drip per pharmacy protocol and obtain a transthoracic echocardiogram to evaluate cardiac function. Continue single-antiplatelet therapy and lipid lowering agent. Monitor ECG changes closely and notify accordingly. Continue chest pain protocol. Thank you for allowing us to participate in this patient's care. Please call if you have any questions or concerns. Critical care time: 45 min. This medical document was created using an [employer] medical record system with voice recognition software and computerized dictation system. Although this document has been carefully reviewed, there might still be some phonetic and typographical errors. Occasional wrong-word or ``sound-alike substitutions may have occurred due to the inherent limitations of voice recognition software. These areas are purely typographical due to imperfections of the software programs and do not reflect any compromise in the patient's medical care. Please read the chart carefully and recognize, using context, where these substitutions have occurred. Plan discussed with: Patient, Spouse, Other NYHA Physical activity limitations: NA Date of Service: Jun 12, 2025 Billing Provider: SASHA DEE Cardiology Common Codes: [id number] CARE 30-74 MIN SASHA DEE Jun 12, 2025 08:17
[2025-06-12] MEDS: ONDANSETRON HCL 4 MG/2 ML VIAL IV PRN (08:29)
[2025-06-12] MEDS: EMPAGLIFLOZIN 10 MG TAB PO SCH (08:30)
[2025-06-12] MEDS: LOSARTAN POTASSIUM 25 MG TAB PO SCH (08:31)
[2025-06-12 09:24] LABS: Hematocrit 43.1 % (36.0-46.0); Hemoglobin 14.7 g/dL (12.2-16.2); Mean Corpuscular Hemoglobin 34.0 pg (28.0-32.0); Mean Corpuscular Volume 100.0 fL (80.0-100.0); Nucleated Red Blood Cells % 0.2 %
[2025-06-12 09:51] LABS: INR 1.04 (0.9-1.15); Partial Thromboplastin Time 25.0 SEC (24.5-34.5); Prothrombin Time 11.0 sec (9.3-11.8)
[2025-06-12] MEDS: HEPARIN DRIP/D5W 100UNITS/ML 250 ML IV SCH (10:08)
[2025-06-12] MEDS: HEPARIN SODIUM (PORCINE) 5000 UNITS/ML 1ML VIAL IV ONE (10:09)
--- NOTE | 2025-06-12 10:18 | CONS ---
Pharmacy Clinical Information: HEPARIN PERACS PROTOCOL: New Heparin order received, labs drawn at 0902 on 06/12/25. Bolus of 3900 units + initial drip rate of 800 units per hour (8mL/hr) Orders read back and confirmed with RN Charity @0933. Next APTT scheduled for 1600. ALEXIS CARY PHARMACIST Jun 12, 2025 10:18
[2025-06-12] MEDS: METOPROLOL SUCCINATE XL 50 MG TAB PO SCH (12:18)
--- NOTE | 2025-06-12 13:18 | DVHPN2 ---
Reviewed: Care Plan, H&P, Labs, Medications, Previous Orders, Radiology Changes from previous H/P or p: No Changes Objective Vitals Vital Signs Date Time Temp Pulse Resp B/P (MAP) Pulse Ox O2 Delivery O2 Flow Rate FiO2 06/12/25 12:59 97.6 91 16 107/69 (82) 99 97.6 06/12/25 08:00 Room Air* 0 21 Intake/Output Intake and Output 06/12/25 07:00 Intake Total 1000 ml Balance 1000 ml Intake Oral 0 ml IV Total 1000 ml Medications Current Medications Medications Dose Ordered Sig/Reggie Route Start Time Stop Time Status Last Admin Dose Admin Morphine Sulfate 2 mg Q30M PRN IV 06/11/25 20:00 06/12/25 08:30 2 MG Aspirin 162 mg DAILY PO 06/12/25 10:00 06/12/25 08:32 162 MG Empaglifozin 10 mg DAILY PO 06/12/25 10:00 06/12/25 08:30 10 MG Losartan Potassium 25 mg DAILY PO 06/12/25 10:00 06/12/25 08:31 25 MG Diagnostic Test (Pha) 1 strip Q6HR 06/12/25 00:00 06/12/25 12:13 1 STRIP Insulin Human Regular Q6HR SC 06/12/25 00:00 06/11/25 23:29 8 UNITS Dextrose 50 ml UD PRN IV 06/11/25 20:30 Ondansetron HCl 4 mg Q4HP PRN IV 06/11/25 20:30 06/12/25 08:29 4 MG Acetaminophen 650 mg Q6HP PRN PO 06/11/25 20:30 Heparin Sodium/ Dextrose 250 ml @ 8 mls/hr Q24H IV 06/12/25 08:30 06/12/25 10:08 8 MLS/HR Atorvastatin Calcium 40 mg HS PO 06/12/25 22:00 Metoprolol Succinate 25 mg DAILY PO 06/12/25 10:00 06/12/25 12:18 25 MG Laboratory Results Laboratory Tests 06/12/25 05:20 Chemistry Test 06/11/25 18:51 06/12/25 05:20 Albumin 4.3 g/dL (3.2-4.8) Calcium Level 9.0 mg/dL (8.7-10.4) 9.1 mg/dL (8.7-10.4) Total Protein 7.2 g/dL (5.7-8.2) Magnesium Level 2.0 mg/dL (1.6-2.6) Coagulation Test 06/12/25 09:02 Prothrombin Time 11.0 sec (9.3-11.8) Prothrombin Time INR 1.04 (0.9-1.15) Activated Partial Thromboplast Time 25.0 SEC (24.5-34.5) Lipid panel Test 06/12/25 05:20 Cholesterol Level 169 mg/dL (< 200) HDL Cholesterol 57 mg/dL (40-59) Triglycerides Level 215 mg/dL (< 150) H Cardiac Markers Test 06/11/25 18:51 B-Type Natriuretic Peptide 53.55 pg/mL (0-100) LFT Test 06/11/25 18:51 Alanine Aminotransferase (ALT) 43 U/L (7-40) H Alkaline Phosphatase 133 U/L (46-116) H Aspartate Amino Transferase (AST) 42 U/L (13-40) H Total Bilirubin 0.2 mg/dL (0.2-1.0) HgA1c, TSH Test 06/12/25 05:20 Hemoglobin A1c 7.7 % A1C (<5.7) H Thyroid Stimulating Hormone (TSH) 1.55 uIU/mL (0.55-4.78) Urinalysis Test 06/11/25 18:27 Urine Color Colorless (Yellow) Urine Clarity Clear (Clear) Urine pH 5.5 (5.0-9.0) Urine Specific [place] 1.020 (1.001-1.035) Urine Protein Negative (Negative) Urine Ketones Negative (Negative) Urine Blood Negative /uL (Negative) Urine Nitrite Negative (Negative) Urine Bilirubin Negative (Negative) Urine Urobilinogen Normal mg/dL (Negative) Urine Leukocyte Esterase Negative /uL (Negative) Urine RBC <1 /hpf (0 - 4) Urine Microscopic WBC 1 /HPF (0-5) Urine Squamous Epithelial Cells Few /hpf (<5) Urine Bacteria None seen /hpf (None Seen) Urine Glucose 4+ mg/dL (Normal) H Labs and/or images reviewed: Labs reviewed by me, Image(s) reviewed by me Assessment/Plan Assessment/Plan Acute myocardial infarction , troponin 3200, treatment per ACS protocol, cardiology consult by Dr. Green appreciated, getting emergent left heart catheterization today , heparin drip, metoprolol, Jardiance Rule out structural heart disease Pertinent family history for cardiovascular disease Zlz-tltetzy-bydcugorn diabetes mellitus Hypertension Dyslipidemia: Lipitor Obesity Time spent 65 minutes Advanced care planning time 20 minutes Patient is full code Plan discussed with: Patient Date of Service: Jun 12, 2025 Billing Provider: MARLENE NASCIMENTO MD Common Visit Codes: [id number] CARE 30-74 MIN MARLENE NASCIMENTO MD Jun 12, 2025 13:18
[2025-06-12 15:49] LABS: INR 1.09 (0.9-1.15); Partial Thromboplastin Time 58.3 SEC (24.5-34.5); Prothrombin Time 11.5 sec (9.3-11.8)
[2025-06-12] MEDS: ACETAMINOPHEN 325 MG TAB PO PRN (20:15)
[2025-06-12] MEDS: ATORVASTATIN 20 MG TAB PO SCH (21:24)
[2025-06-12 21:45] LABS: INR 1.09 (0.9-1.15); Partial Thromboplastin Time 52.2 SEC (24.5-34.5); Prothrombin Time 11.5 sec (9.3-11.8)
--- NOTE | 2025-06-12 23:39 | DVHINCON2 ---
Date Seen: Jun 12, 2025 Referring Physician RICK Garcia Reason for Consultation Chest pain History of Present Illness This is a 70-year-old female with a past medical history of hypertension, dyslipidemia, byk-mszefkt-yluggzvmv diabetes mellitus, and obesity who presented to the emergency room via EMS via EMS with a complaint of chest pain since 06/11/2025 at 4:00 p.m. Patient describes her chest pain as retrosternal, pres sure-like, and radiating to the anterior neck area for which she called 911. EN route to the hospital she was medicated with ASA 324 mg and fentanyl 50 mcg x 1 with some relief of symptoms. She has undergone multiple 12 lead electrocardiograms revealing progressive ST-T-wave segment changes mostly to inferior leads. Serial troponin levels are trending up with latest > 2700s ng/L. Patient reports a significant familial history for cardiovascular disease including her mother with a CABG in her 70s y.o., father with myocardial infarction, and youngest sibling with PTCA and stent placement in his 40s y.o. Chest x-ray showed borderline cardiomegaly and mild pulmonary edema. Patient was admitted to the hospital. I am asked to consult on this patient. Past Medical History Past medical history reviewed. No other significant than mentioned above. Past Surgical History Past surgical history reviewed. No other significant than mentioned above. Family History: Cardiovascular disease G8 MOTHER G8 FATHER Diabetes mellitus G8 MOTHER Allergies: Coded Allergies: NO KNOWN ALLERGIES (Unverified , 06/11/25) Home Meds Reported Medications Docusate Sodium (Docusate Sodium) 100 Mg Cap, 1 CAP PO QHSP PRN for FOR CONSTIPATION 06/11/25 Losartan Potassium (Losartan Potassium) 25 Mg Tab, 1 TAB PO DAILY 06/11/25 Glipizide (Glipizide) 10 Mg Tab, 1 TAB PO BID 06/11/25 Benzonatate (Benzonatate) 100 Mg Cap, CAP PO 06/11/25 Lovastatin (Lovastatin) 10 Mg Tab, 1 TAB PO DAILY 06/11/25 Metformin Hydrochloride (Metformin Hcl) 500 Mg Tab, 2 TAB PO BIDWM for 90 Days, #360 06/11/25 Amlodipine Besylate (Amlodipine Besylate) 10 Mg Tab, 1 TAB PO DAILY 06/11/25 Empagliflozin (Jardiance) 10 Mg Tab, 1 TAB PO DAILY 06/11/25 Current Medications Current Medications Medications (Trade) Dose Ordered Sig/Reggie Route PRN Reason Start Time Stop Time Status Last Admin Nitroglycerin (Ntrostat Sublingual) 0.4 mg Q5MINP PRN SL FOR CHEST PAIN 06/11/25 20:00 06/12/25 09:35 DC Morphine Sulfate 2 mg Q30M PRN IV FOR CHEST PAIN 06/11/25 20:00 06/12/25 08:30 Aspirin 162 mg DAILY PO 06/12/25 10:00 06/12/25 08:32 Atorvastatin Calcium (Lipitor) 10 mg HS PO 06/11/25 22:00 06/12/25 09:35 DC 06/11/25 22:14 Empaglifozin (Jardiance) 10 mg DAILY PO 06/12/25 10:00 06/12/25 08:30 Amlodipine Besylate (Norvasc Tablet) 10 mg DAILY PO 06/12/25 10:00 06/12/25 09:35 DC 06/12/25 08:31 Losartan Potassium (Cozaar Tablet) 25 mg DAILY PO 06/12/25 10:00 06/12/25 08:31 Diagnostic Test (Pha) (Accu-Chek Comfort Curve T) 1 strip Q6HR 06/12/25 00:00 06/12/25 12:13 Insulin Human Regular (InsuLIN R) Q6HR SC 06/12/25 00:00 06/11/25 23:29 Dextrose 50 ml UD PRN IV Blood Sugar LESS THAN 60 06/11/25 20:30 Ondansetron HCl (Zofran) 4 mg Q4HP PRN IV NAUSEA / VOMITING 06/11/25 20:30 06/12/25 08:29 Acetaminophen (Tylenol Tablet) 650 mg Q6HP PRN PO PAIN SCALE 1-3 OR TEMP>100.4 06/11/25 20:30 Heparin Sodium/ Dextrose 250 ml @ 8 mls/hr Q24H IV 06/12/25 08:30 06/12/25 10:08 Atorvastatin Calcium (Lipitor) 40 mg HS PO 06/12/25 22:00 Metoprolol Succinate (Toprol Xl) 25 mg DAILY PO 06/12/25 10:00 06/12/25 12:18 Review of Systems Constitutional: No symptom reported Ears, Nose, & Throat: No symptom reported Eyes: No symptom reported Neurological: No symptoms reported Pulmonary/Respiratory: No symptom reported Cardiovascular: Chest pain Gastrointestinal: No symptom reported Genitourinary: No symptom reported Musculoskeletal: No symptom reported Skin: No symptom reported Psychiatric: No symptom reported Endocrine: No symptom reported Hemotologic/Lymphatic: No symptom reported Vital Signs Vital Signs Date Time Temp Pulse Resp B/P (MAP) Pulse Ox O2 Delivery O2 Flow Rate FiO2 06/12/25 12:59 97.6 91 16 107/69 (82) 99 97.6 06/12/25 08:00 Room Air* 0 21 Physical Exam GENERAL: Alert and oriented x 3. No acute distress. Obese. EYES: PERRL, EOMI. Anicteric. HENT: Moist mucous membranes. LUNGS: Clear to auscultation bilaterally. CARDIOVASCULAR: Regular rate and rhythm. ABDOMEN: Soft, nontender and nondistended. EXTREMITIES: No edema. NEUROLOGIC: No focal neurological deficits. SKIN: Warm, dry. Labs/Diagnostic Data Labs Test 06/12/25 12:07 06/12/25 11:56 06/12/25 09:02 06/12/25 05:20 Range/Units POC Glucose 136 H 70-106 mg/dl Troponin I High Sensitivity 3226 *H </=34 ng/L Prothrombin Time 11.0 9.3-11.8 sec Prothrombin Time INR 1.04 0.9-1.15 Activated Partial Thromboplast Time 25.0 24.5-34.5 SEC White Blood Count 8.5 4.4-10.8 10^3/uL Red Blood Count 4.31 4.0-5.20 10^6/uL Hemoglobin 14.7 12.2-16.2 g/dL Hematocrit 43.1 36.0-46.0 % Mean Corpuscular Volume 100.0 80.0-100.0 fL Mean Corpuscular Hemoglobin 34.0 H 28.0-32.0 pg Mean Corpuscular Hemoglobin Concent 34.0 32.0-36.0 g/dL Red Cell Distribution Width 13.1 11.8-14.3 % Platelet Count 197 140-450 10^3/uL Mean Platelet Volume 10.5 6.9-10.8 fL Neutrophils (%) (Auto) 57.6 37.0-80.0 % Lymphocytes (%) (Auto) 27.5 10.0-50.0 % Monocytes (%) (Auto) 11.4 0.0-12.0 % Eosinophils (%) (Auto) 2.7 0.0-7.0 % Basophils (%) (Auto) 0.8 0.0-2.0 % Neutrophils # (Auto) 4.9 1.6-8.6 10 ^3/uL Lymphocytes # (Auto) 2.3 0.4-5.4 10 ^3/uL Monocytes # (Auto) 1.0 0-1.3 10 ^3/uL Eosinophils # (Auto) 0.2 0-0.8 10 ^3/uL Basophils # (Auto) 0.1 0-0.2 10 ^3/uL Nucleated Red Blood Cells 0.2 % Sodium Level 140 136-145 mmol/L Potassium Level 3.7 3.5-5.1 mmol/L Chloride Level 104 98-107 mmol/L Carbon Dioxide Level 24 20-31 mmol/L Anion Gap 12 5-15 Blood Urea Nitrogen 8 L 9-23 mg/dL Creatinine 0.76 0.550-1.02 mg/dL Glomerular Filtration Rate Calc 85 >90 mL/min BUN/Creatinine Ratio 10.5 10.0-20.0 Serum Glucose 86 74-106 mg/dL Hemoglobin A1c 7.7 H <5.7 % A1C Calcium Level 9.1 8.7-10.4 mg/dL Magnesium Level 2.0 1.6-2.6 mg/dL Triglycerides Level 215 H < 150 mg/dL Cholesterol Level 169 < 200 mg/dL LDL Cholesterol 95 < 100 mg/dL HDL Cholesterol 57 40-59 mg/dL Thyroid Stimulating Hormone (TSH) 1.55 0.55-4.78 uIU/mL Test 06/11/25 18:51 06/11/25 18:27 Range/Units Total Bilirubin 0.2 0.2-1.0 mg/dL Aspartate Amino Transferase (AST) 42 H 13-40 U/L Alanine Aminotransferase (ALT) 43 H 7-40 U/L Alkaline Phosphatase 133 H 46-116 U/L B-Type Natriuretic Peptide 53.55 0-100 pg/mL Total Protein 7.2 5.7-8.2 g/dL Albumin 4.3 3.2-4.8 g/dL Urine Color Colorless Yellow Urine Clarity Clear Clear Urine pH 5.5 5.0-9.0 Urine Specific [place] 1.020 1.001-1.035 Urine Protein Negative Negative Urine Ketones Negative Negative Urine Blood Negative Negative /uL Urine Nitrite Negative Negative Urine Bilirubin Negative Negative Urine Urobilinogen Normal Negative mg/dL Urine Leukocyte Esterase Negative Negative /uL Urine RBC <1 0 - 4 /hpf Urine Microscopic WBC 1 0-5 /HPF Urine Squamous Epithelial Cells Few <5 /hpf Urine Bacteria None seen None Seen /hpf Urine Glucose 4+ H Normal mg/dL Assessment Acute myocardial infarction. Rule out structural heart disease. Pertinent family history for cardiovascular disease. Qqx-mxxaoki-pehvbaqrw diabetes mellitus. Hypertension. Dyslipidemia. Obesity. Plan/Recommendation I agree with your ongoing assessment and care of plan. Patient has been seen by Peace Hunt NP on my behalf, her and I discussed the plan with the patient. Scheduled for urgent cardiac catheterization and coronary angiogram at first available. All risks and benefits of the procedure were discussed with the patient who agrees to proceed with intervention. All questions answered. In the meantime, initiate heparin drip per pharmacy protocol and obtain a transthoracic echocardiogram to evaluate cardiac function. Continue single-antiplatelet therapy and lipid lowering agent. Monitor ECG changes closely and notify accordingly. Continue chest pain protocol. Additional plan as per the hospital course. Plan discussed with: Patient NYHA Physical activity limitations: NA Date of Service: Jun 12, 2025 Billing Provider: MARIANO GARNER MD Cardiology Common Codes: [id number] INP/OBS CARE (High), [id number] CARE 30-74 MIN MARIANO GARNER MD Jun 12, 2025 13:32
[2025-06-13] VITALS (26 sets, daily range): BP systolic 95–139; BP diastolic 54–85; PULSE 70–123; RESP 13–26; TEMP 97.9–98.5; O2SAT 92–98
[2025-06-13 03:41] LABS: Nucleated Red Blood Cells % 0.1 %
[2025-06-13 03:43] LABS: Hematocrit 41.0 % (36.0-46.0); Hemoglobin 14.3 g/dL (12.2-16.2); Mean Corpuscular Hemoglobin 35.2 pg (28.0-32.0); Mean Corpuscular Volume 101.1 fL (80.0-100.0)
[2025-06-13 03:57] LABS: INR 1.09 (0.9-1.15); Partial Thromboplastin Time 61.8 SEC (24.5-34.5); Prothrombin Time 11.5 sec (9.3-11.8)
[2025-06-13 04:00] LABS: Albumin 3.9 g/dL (3.2-4.8); Alkaline Phosphatase 99 U/L (46-116); Anion Gap 10 (5-15); BUN/Creatinine Ratio 15.3 (10.0-20.0); Blood Urea Nitrogen 15 mg/dL (9-23); Calcium 9.0 mg/dL (8.7-10.4); Carbon Dioxide 25 mmol/L (20-31); Chloride 102 mmol/L (98-107); Potassium 4.1 mmol/L (3.5-5.1); Sodium 137 mmol/L (136-145); Total Protein 6.8 g/dL (5.7-8.2)
[2025-06-13 04:01] LABS: Alanine Aminotransferase 44 U/L (7-40); Bilirubin, Total 0.4 mg/dL (0.2-1.0); Glucose 175 mg/dL (74-106)
--- NOTE | 2025-06-13 07:56 | ECG ---
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
--- NOTE | 2025-06-13 09:52 | DVHPN2 ---
Reviewed: Care Plan, H&P, Labs, Medications, Previous Orders, Radiology Changes from previous H/P or p: No Changes Objective Vitals Vital Signs Date Time Temp Pulse Resp B/P (MAP) Pulse Ox O2 Delivery O2 Flow Rate FiO2 06/13/25 08:57 115/60 06/13/25 08:56 79 06/13/25 08:38 98.5 18 93 98.5 06/12/25 20:00 Room Air* 0 21 Intake/Output Intake and Output 06/13/25 07:00 Intake Total 0 ml Balance 0 ml Intake Oral 0 ml # Voids 5 Medications Current Medications Medications Dose Ordered Sig/Reggie Route Start Time Stop Time Status Last Admin Dose Admin Morphine Sulfate 2 mg Q30M PRN IV 06/11/25 20:00 06/12/25 08:30 2 MG Aspirin 162 mg DAILY PO 06/12/25 10:00 06/13/25 08:56 162 MG Empaglifozin 10 mg DAILY PO 06/12/25 10:00 06/13/25 08:57 10 MG Losartan Potassium 25 mg DAILY PO 06/12/25 10:00 06/13/25 08:57 25 MG Diagnostic Test (Pha) 1 strip Q6HR 06/12/25 00:00 06/13/25 05:58 1 STRIP Insulin Human Regular Q6HR SC 06/12/25 00:00 06/12/25 23:53 6 UNITS Dextrose 50 ml UD PRN IV 06/11/25 20:30 Ondansetron HCl 4 mg Q4HP PRN IV 06/11/25 20:30 06/12/25 08:29 4 MG Acetaminophen 650 mg Q6HP PRN PO 06/11/25 20:30 06/12/25 20:15 650 MG Heparin Sodium/ Dextrose 250 ml @ 8 mls/hr Q24H IV 06/12/25 08:30 06/13/25 08:46 8 MLS/HR Atorvastatin Calcium 40 mg HS PO 06/12/25 22:00 06/12/25 21:24 40 MG Metoprolol Succinate 25 mg DAILY PO 06/12/25 10:00 06/13/25 08:56 25 MG Laboratory Results Laboratory Tests 06/13/25 03:33 Chemistry Test 06/13/25 03:33 Albumin 3.9 g/dL (3.2-4.8) Calcium Level 9.0 mg/dL (8.7-10.4) Total Protein 6.8 g/dL (5.7-8.2) Coagulation Test 06/12/25 15:00 06/12/25 20:57 06/13/25 03:33 Prothrombin Time 11.5 sec (9.3-11.8) 11.5 sec (9.3-11.8) 11.5 sec (9.3-11.8) Prothrombin Time INR 1.09 (0.9-1.15) 1.09 (0.9-1.15) 1.09 (0.9-1.15) Activated Partial Thromboplast Time 58.3 SEC (24.5-34.5) H 52.2 SEC (24.5-34.5) H 61.8 SEC (24.5-34.5) H LFT Test 06/13/25 03:33 Alanine Aminotransferase (ALT) 44 U/L (7-40) H Alkaline Phosphatase 99 U/L (46-116) Aspartate Amino Transferase (AST) 59 U/L (13-40) H Total Bilirubin 0.4 mg/dL (0.2-1.0) Urinalysis Test 06/11/25 18:27 Urine Color Colorless (Yellow) Urine Clarity Clear (Clear) Urine pH 5.5 (5.0-9.0) Urine Specific [place] 1.020 (1.001-1.035) Urine Protein Negative (Negative) Urine Ketones Negative (Negative) Urine Blood Negative /uL (Negative) Urine Nitrite Negative (Negative) Urine Bilirubin Negative (Negative) Urine Urobilinogen Normal mg/dL (Negative) Urine Leukocyte Esterase Negative /uL (Negative) Urine RBC <1 /hpf (0 - 4) Urine Microscopic WBC 1 /HPF (0-5) Urine Squamous Epithelial Cells Few /hpf (<5) Urine Bacteria None seen /hpf (None Seen) Urine Glucose 4+ mg/dL (Normal) H Labs and/or images reviewed: Labs reviewed by me, Image(s) reviewed by me Assessment/Plan Assessment/Plan Acute myocardial infarction , troponin 3200, treatment per ACS protocol, cardiology consult by Dr. Green appreciated, getting emergent left heart catheterization today , heparin drip, metoprolol, Jardiance Rule out structural heart disease Pertinent family history for cardiovascular disease Rtz-rgwjbsv-mgalufemf diabetes mellitus Hypertension Dyslipidemia: Lipitor Obesity Time spent 55 minutes Plan discussed with: Patient Date of Service: Jun 13, 2025 Billing Provider: MARLENE NASCIMENTO MD Common Visit Codes: [id number] INP/OBS CARE(HIGH) MARLENE NASCIMENTO MD Jun 13, 2025 09:52
[2025-06-13] MEDS: IODIXANOL 320MG/ML 100ML BTL IV ONE ×4 (14:18→16:52)
[2025-06-13] MEDS: ANGIOMAX 250 MG VIAL IV ONE ×2 (14:26→15:26)
[2025-06-13] MEDS: fentaNYL CITRATE 100 MCG/2 ML VL ONE ×2 (14:27→16:00)
[2025-06-13] MEDS: SODIUM CHL 0.9% 50 ML ONE ×2 (14:27→15:27)
[2025-06-13] MEDS: VERAPAMIL 2.5MG/ML INJ 2ML VIAL IV ONE (14:27)
[2025-06-13] MEDS: LIDOCAINE 2%HCL (LOCAL ANESTH.) INJ 20ML MDV ONE (14:27)
[2025-06-13] MEDS: MIDAZOLAM HCL 2MG/2ML 2ml VIAL (1mg/ml) ONE (14:27)
[2025-06-13] MEDS: EPINEPHrine HCL 1 MG/10 ML SYRG ONE (14:53)
[2025-06-13] MEDS: ATROPINE SULF 1 MG/10ml SYR ONE (14:54)
[2025-06-13] MEDS: HYDROmorphone HCL 2 MG/ML VL/or syr ONE (16:39)
[2025-06-13] MEDS: AMIODARONE 360mg/200mL PREMIX 200 ML IV ONE ×2 (17:22→19:45)
[2025-06-13] MEDS: AMIODARONE HCL (50 MG/ ML) 3 ML VIAL IV ONE (17:23)
[2025-06-13] MEDS: EPTIFIBATIDE INJ (2MG/ML) 10ML VIAL IV ONE (17:40)
[2025-06-13] MEDS ORDERED: SODIUM CHLORIDE 0.9% 1,000 ML IV ONE (18:00)
[2025-06-13] MEDS: TICAGRELOR 90 MG TAB ONE (18:03)
--- NOTE | 2025-06-13 18:09 | DVHOP2 ---
Operative Report - 2 Report Details Date: 06/13/25 Preop Diagnosis: Occlusion of the RCA Postop Diagnosis: Reconstruction and occluded RCA and dissection of RCA Surgeon: Raven Green MD/Shay Vazquez MD Anesthesiologist: Conscious sedation Anesthesia: Mac, Local Consent: The patient was informed of the risks and benefits of the procedure. These include but are not limited to complications of anesthesia, postoperative infection, incomplete relief of symptoms, recurrence of symptoms, damage to blood vessels, nerves and tendons, deep venous thrombosis, pulmonary embolism and possible need for repeat surgery in the future. Complications: Dissection of RCA Findings: Occlusion of RCA Indications for Surgery: Occlusion of RCA Name of Procedure Performed PTCA and stenting of RCA. Intravascular ultrasound of RCA. Procedure Details Procedure Details: Dr. Helton regaining on S patient on the right coronary artery and clearance a acute occlusion Ca. several attempts were made to wire the transluminal with the was unsuccessful. I was called in for 2nd opinion and intervention. I post dilated different wires to find the true lumen. We were unsuccessful in finding mentioned hemodialysis proximal portion. Placed a probe via wire was then an AL1 guide and was able to find the chair in the mid RCA. Upon obtaining access human initiated stenting from distal to proximal with a two by 33 on X drug- eluting stent. He noticed dissections distally. Proceed to find the true lumen of the dissections in the distal RCA able to place a 2nd two five by 32 mm stenting to the distal RCA reestablishing flow to the PDA. The posterolateral branch main dissected. We were able to have a wire through the distal posterolateral branch however Mall able to reestablish GRAEME three flow. We stented the proximal posterolateral branch and overlapped with the distal RCA stent with a 3 x 23 mm on X drug-eluting stent by [employer]. Re-initiate Integrilin. The patient did develop ventricular fibrillation on one occasion. She did undergo shock DC cardioversion. Was established to degree. The she and heartburn pole. Patient remained hemodynamically stable. She has been left in the care of Dr. Green. Condition Guarded Disposition Still a Patient Date of Service: Jun 13, 2025 Billing Provider: SHAY VAZQUEZ Sr., MD Cardiology Common Codes: [id number] INP/OBS CARE (High) Cardiology Procedure Codes: 97580 -PTCA W/STENT PLACEMENT, 16832-HKSQ HEART CATH W/INTRA INJ SHAY VAZQUEZ Sr., MD Jun 13, 2025 18:09
--- NOTE | 2025-06-13 18:11 | DVHSR ---
APPROVED REPORT EXAM: Two-dimensional and M-mode echocardiogram with Doppler and color Doppler. Blood Pressure: 118/73 mmHg INDICATION Chest Pain RISK FACTORS Height: 4' 10", Weight: 143 DIMENSIONS LVDd4.5 (3.8-5.7cm)LA (2D)2.9 (1.9-4.0cm)Aortic Root3.0 (2.0-3.7cm) LVDs3.7 (2.5-4.0cm)LA (MM) (1.9-4.0cm)Aortic Cusp Exc1.5 (1.5-2.0cm) EF (%) 40.0 (55-70%)Rt. Atrium2.9 (1.9-4.0cm)Asc. Aorta cm IVSd0.9 (0.7-1.1cm)RV (D) (1.8-2.4cm) PWd0.8 (0.7-1.1cm) Mitral Valve MitralMitral Stenosis E wave0.90m/sMV Mean GR.mmHg A wave1.10m/sMV Peak GR.mmHg E/A ratio0.82D MVAcm2 Aortic Valve Aortic ValveAortic Stenosis V10.70m/Rocio Mean GR.4mmHg V21.40m/Rocio Peak GR.8mmHg LVOT Diameter1.8 (1.8-2.4cm)Doppler AVA1.27cm2 Pulmonic Valve V20.60m/s Conclusion A LARGE APICAL ANTERIOR AND INFERIOR WALL HYPOKINESIS LV EF IS IN RANGE OF ONLY 30% GROSSLY NORMAL VALVES NO EFFUSION
[2025-06-13] MEDS: FAMOTIDINE (10MG/ML) 2ML VL IV ONE ×2 (18:23→18:26)
[2025-06-13] MEDS: diphenhdrAMINE HCL 50 MG/1 ML VL IV ONE (18:26)
[2025-06-13] MEDS: SODIUM CHLORIDE 0.9% 500 ML IV ONE (18:50)
[2025-06-13] MEDS ORDERED: diphenhdrAMINE HCL 50 MG/1 ML VL IV PRN (19:00)
[2025-06-13] MEDS ORDERED: EPTIFIBATIDE DRIP(0.75MG/ML) 100 ML IV SCH (19:15)
[2025-06-13] MEDS: EPTIFIBATIDE DRIP(0.75MG/ML) 100 ML IV SCH (20:34)
[2025-06-13] MEDS: SODIUM CHLORIDE 0.9% 1,000 ML IV SCH (20:43)
[2025-06-13 21:00] LABS: Hematocrit 43.6 % (36.0-46.0); Hemoglobin 14.8 g/dL (12.2-16.2); Mean Corpuscular Hemoglobin 34.6 pg (28.0-32.0); Mean Corpuscular Volume 101.9 fL (80.0-100.0); Nucleated Red Blood Cells % 0.0 %
[2025-06-13 21:06] LABS: Anion Gap 16 (5-15); Chloride 101 mmol/L (98-107); Potassium 4.3 mmol/L (3.5-5.1); Sodium 136 mmol/L (136-145)
[2025-06-13 21:07] LABS: Calcium 8.7 mg/dL (8.7-10.4)
[2025-06-13 21:12] LABS: BUN/Creatinine Ratio 12.6 (10.0-20.0); Blood Urea Nitrogen 11 mg/dL (9-23); Magnesium 1.9 mg/dL (1.6-2.6)
[2025-06-13 21:13] LABS: Carbon Dioxide 19 mmol/L (20-31); Glucose 188 mg/dL (74-106)
--- NOTE | 2025-06-13 21:25 | DVHPN ---
DATE: 06/13/2025 The patient was seen several times after the procedure. Discussion done with the patient's son counseling done. All information given. Discussion done with the nurse, the patient currently completely pain-free. EKG has been reviewed, ST elevation in II, III, the patient is pain free at this time. At this time, the patient has been advised to have: * Integrilin drip. * Aspirin. * Metoprolol. * Brilinta 90 mg b.i.d. Discussion done with Dr. Vazquez, informed me that keep the patient over here. There is no need to transfer the patient. Leny Green MD MP/ANN-MARIE/GEE/JOHN TID: [id number] RECEIPT: [id number] MTDD
[2025-06-13] MEDS ORDERED: METOPROLOL TARTRATE 25 MG TAB PO SCH (22:00)
[2025-06-13] MEDS: PANTOPRAZOLE 40 MG/10 ML VIAL INJ IV SCH (22:02)
[2025-06-13] MEDS: TICAGRELOR 90 MG TAB PO SCH (22:28)
[2025-06-13] MEDS: ATORVASTATIN 20 MG TAB PO SCH (22:28)
[2025-06-13] MEDS: METOPROLOL TARTRATE 25 MG TAB PO SCH (22:30)
--- NOTE | 2025-06-13 22:30 | DVHPN2 ---
Progress Note - Dictate Date Seen: Jun 13, 2025 Medical Necessity Reason Pt with a Central, PICC or Fol: No Subjective Patient was seen and evaluated in follow up in the ICU. Patient is s/p LHC. The patient was seen several times after the procedure Discussion done with the patient's son, counseling done. All information given. Discussion done with the nurse.The patient currently completely pain-free. EKG has been reviewed, ST elevation in II, III. The patient is pain free at this time. Discussion done with Dr. Vazquez, informed me that keep the patient over here. There is no need to transfer the patient. WBC 12.1. vital signs Vital Sign Date Time Temp Pulse Resp B/P (MAP) Pulse Ox O2 Delivery O2 Flow Rate FiO2 06/13/25 20:15 111 14 124/75 (91) 98 06/13/25 18:47 Room Air* 0 21 06/13/25 18:47 98.1 98.1 Total Intake and Output 06/12/25 06/12/25 06/13/25 15:00 23:00 07:00 Intake Total 0 ml 0 ml Balance 0 ml 0 ml medications Current Medications Medications Dose Ordered Sig/Reggie Route Start Time Stop Time Status Last Admin Dose Admin Morphine Sulfate 2 mg Q30M PRN IV 06/11/25 20:00 06/12/25 08:30 2 MG Diagnostic Test (Pha) 1 strip Q6HR 06/12/25 00:00 06/13/25 05:58 1 STRIP Insulin Human Regular Q6HR SC 06/12/25 00:00 06/12/25 23:53 6 UNITS Dextrose 50 ml UD PRN IV 06/11/25 20:30 Ondansetron HCl 4 mg Q4HP PRN IV 06/11/25 20:30 06/12/25 08:29 4 MG Acetaminophen 650 mg Q6HP PRN PO 06/11/25 20:30 06/13/25 20:44 650 MG Sodium Chloride 1,000 ml @ 60 mls/hr [id number] IV 06/13/25 18:00 06/13/25 20:43 60 MLS/HR Atorvastatin Calcium 80 mg HS PO 06/13/25 22:00 Aspirin 81 mg DAILY PO 06/14/25 10:00 Ticagrelor 90 mg BID PO 06/13/25 22:00 Eptifibatide 100 ml @ 5.5 mls/hr [id number] IV 06/13/25 19:00 06/13/25 20:34 5.5 MLS/HR Diphenhydramine HCl 12.5 mg Q4HP PRN IV 06/13/25 19:00 Amiodarone HCL/ Dextrose 200 ml @ 16.66 mls/ hr Q12H IV 06/14/25 01:45 Pantoprazole Sodium 40 mg BID IV 06/13/25 22:00 Metoprolol Tartrate 25 mg BID PO 06/13/25 22:00 objective GENERAL: Alert and oriented x 3. No acute distress. Obese. EYES: PERRL, EOMI. Anicteric. HENT: Moist mucous membranes. LUNGS: Clear to auscultation bilaterally. CARDIOVASCULAR: Regular rate and rhythm. ABDOMEN: Soft, nontender and nondistended. EXTREMITIES: No edema. NEUROLOGIC: No focal neurological deficits. SKIN: Warm, dry. laboratory and microbiology Laboratory Tests 06/13/25 20:48 Test 06/13/25 20:48 Range/Units Serum Glucose 188 H 74-106 mg/dL Problem List Acute myocardial infarction. Rule out structural heart disease. Pertinent family history for cardiovascular disease. Eee-whufwkg-bylosjcxi diabetes mellitus. Hypertension. Dyslipidemia. Obesity. Assessment/Plan Continued all current supportive medical care. IV Amiodarone. Aspirin, Lipitor, Brilinta, Metoprolol. Integrilin drip. GI prophylactics. Morphine for pain management. Additional plan as per the hospital course. Critical care time of 45 minutes provided to include time spent evaluation of patient at bedside, when appropriate patient/family education for diagnosis, treatment plan, review of pertinent medical information and discussion of care with specialty providers and PCP. Plan discussed with: Patient MARIANO GARNER MD Jun 13, 2025 21:56
[2025-06-13] MEDS: AMIODARONE 360mg/200mL PREMIX 200 ML IV SCH (23:43)
[2025-06-14] VITALS (98 sets, daily range): BP systolic 72–119; BP diastolic 45–68; PULSE 62–97; RESP 11–30; TEMP 98–100.2; O2SAT 5–100
[2025-06-14] MEDS: SODIUM CHLORIDE 0.9% 1,000 ML IV SCH (02:34)
--- NOTE | 2025-06-14 02:44 | DVH ---
CHEST RADIOGRAPH Indication: Throat pain Technique: Single frontal view of the chest was obtained COMPARISON: XY CHEST PORTABLE on DOS: 06/11/25, XY CHEST TWO VIEWS ROUTINE on DOS: 07/07/24, CXR2 on D OS: 02/02/22, CHEST TWO VIEWS ROUTINE on DOS: 02/02/22, CHEST TWO VIEWS ROUTINE on DOS: 02/06/21 FINDINGS: Lines and Tubes: None Lungs: Clear Pleura: No effusion. No pneumothorax. Cardiomediastinal contours: Unremarkable Bones: Unremarkable IMPRESSION: 1. No acute disease.
[2025-06-14 03:28] LABS: Hematocrit 41.2 % (36.0-46.0); Hemoglobin 14.0 g/dL (12.2-16.2); Mean Corpuscular Hemoglobin 34.6 pg (28.0-32.0); Mean Corpuscular Volume 101.8 fL (80.0-100.0); Nucleated Red Blood Cells % 0.0 %
[2025-06-14 03:44] LABS: INR 1.13 (0.9-1.15); Partial Thromboplastin Time 28.8 SEC (24.5-34.5); Prothrombin Time 11.8 sec (9.3-11.8)
[2025-06-14 03:47] LABS: Albumin 4.1 g/dL (3.2-4.8); Alkaline Phosphatase 87 U/L (46-116); Anion Gap 18 (5-15); BUN/Creatinine Ratio 15.9 (10.0-20.0); Blood Urea Nitrogen 14 mg/dL (9-23); Calcium 8.9 mg/dL (8.7-10.4); Chloride 101 mmol/L (98-107); Potassium 4.3 mmol/L (3.5-5.1); Total Protein 7.0 g/dL (5.7-8.2)
[2025-06-14 03:48] LABS: Alanine Aminotransferase 57 U/L (7-40); Bilirubin, Total 0.6 mg/dL (0.2-1.0); Carbon Dioxide 16 mmol/L (20-31); Glucose 200 mg/dL (74-106); Sodium 135 mmol/L (136-145)
--- NOTE | 2025-06-14 05:50 | DVHOP ---
DATE OF SURGERY: 06/13/2025 TECHNIQUE PERFORMED: * Emergency case. * Ultrasound of the right radial artery. * Management of conscious sedation. * Insertion of 6-[place] arterial line in the right radial artery. * Left heart catheter. * Left angiogram. * [place] selective left and right coronary artery angiography. * Attempt to do the intervention on the right coronary artery by putting the wire only. ASSISTANTS: Assisted by our staff here are, Dolores Hampton Josue, Steve. INDICATION: DESCRIPTION OF PROCEDURE: Risks and benefits discussed. Counseling done. The patient had the information given. The patient was brought to electroplating laborer. The patient's right radial area thoroughly cleaned with soap and Betadine. Lidocaine was given. IV Versed and fentanyl had been given. A 6-[place] arterial line had been placed in a standard manner. We had put a TIG catheter 5-[place] 4-0 and left coronary angio done. With the help of similar catheter, we did a right coronary angio done. With the help of a similar catheter, left heart cath and left ventriculogram was done. Procedure had been completed and subsequently now it has been noted that the patient's right coronary artery proximally has been noted to have the critical narrowing in the range of 99%. IMPRESSION: * Normal left main. * Left anterior descending artery in the mid region is narrowed, 70% to 80% * Circumflex and obtuse marginal normal. * Right artery. * Artery has been noted. There is an underlying critical 99% narrowing of the proximal region. Subsequently distally, it has 99% narrowing. PLAN OF ACTION: As follows. At this time, we attempted right coronary artery passing the wire, but wire did not go to, so I handed over the case to Dr. Vazquez. Leny Green MD MP/ALON/GEE/JOHN TID: [id number] RECEIPT: [id number] [facility]
--- NOTE | 2025-06-14 08:37 | DVHPN2 ---
Reviewed: Care Plan, H&P, Labs, Medications, Previous Orders, Radiology Changes from previous H/P or p: No Changes Objective Vitals Vital Signs Date Time Temp Pulse Resp B/P (MAP) Pulse Ox O2 Delivery O2 Flow Rate FiO2 06/14/25 06:45 74 28 97/60 (72) 94 06/14/25 06:00 Room Air* 0 97 21 06/14/25 04:00 98.1 98.1 Intake/Output Intake and Output 06/14/25 07:00 Intake Total 1258.27 ml Balance 1258.27 ml IV Total 1258.27 ml Medications Current Medications Medications Dose Ordered Sig/Reggie Route Start Time Stop Time Status Last Admin Dose Admin Morphine Sulfate 2 mg Q30M PRN IV 06/11/25 20:00 06/12/25 08:30 2 MG Diagnostic Test (Pha) 1 strip Q6HR 06/12/25 00:00 06/14/25 06:30 1 STRIP Insulin Human Regular Q6HR SC 06/12/25 00:00 06/14/25 06:32 3 UNITS Dextrose 50 ml UD PRN IV 06/11/25 20:30 Ondansetron HCl 4 mg Q4HP PRN IV 06/11/25 20:30 06/12/25 08:29 4 MG Acetaminophen 650 mg Q6HP PRN PO 06/11/25 20:30 06/13/25 20:44 650 MG Atorvastatin Calcium 80 mg HS PO 06/13/25 22:00 06/13/25 22:28 80 MG Aspirin 81 mg DAILY PO 06/14/25 10:00 Ticagrelor 90 mg BID PO 06/13/25 22:00 06/13/25 22:28 90 MG Eptifibatide 100 ml @ 5.5 mls/hr [id number] IV 06/13/25 19:00 06/13/25 20:34 5.5 MLS/HR Diphenhydramine HCl 12.5 mg Q4HP PRN IV 06/13/25 19:00 Amiodarone HCL/ Dextrose 200 ml @ 16.66 mls/ hr Q12H IV 06/14/25 01:45 06/13/25 23:43 16.66 MLS/HR Pantoprazole Sodium 40 mg BID IV 06/13/25 22:00 9/26/25 22:28 40 MG Metoprolol Tartrate 25 mg BID PO 06/13/25 22:00 06/13/25 22:30 25 MG Sodium Chloride 1,000 ml @ 100 mls/hr Q10H IV 06/14/25 01:15 06/14/25 02:34 100 MLS/HR Laboratory Results Laboratory Tests 06/14/25 02:59 Chemistry Test 06/13/25 20:48 06/14/25 02:59 Calcium Level 8.7 mg/dL (8.7-10.4) 8.9 mg/dL (8.7-10.4) Magnesium Level 1.9 mg/dL (1.6-2.6) Albumin 4.1 g/dL (3.2-4.8) Total Protein 7.0 g/dL (5.7-8.2) Coagulation Test 06/14/25 02:59 Prothrombin Time 11.8 sec (9.3-11.8) Prothrombin Time INR 1.13 (0.9-1.15) Activated Partial Thromboplast Time 28.8 SEC (24.5-34.5) LFT Test 06/14/25 02:59 Alanine Aminotransferase (ALT) 57 U/L (7-40) H Alkaline Phosphatase 87 U/L (46-116) Aspartate Amino Transferase (AST) 161 U/L (13-40) H Total Bilirubin 0.6 mg/dL (0.2-1.0) Urinalysis Test 06/11/25 18:27 Urine Color Colorless (Yellow) Urine Clarity Clear (Clear) Urine pH 5.5 (5.0-9.0) Urine Specific [place] 1.020 (1.001-1.035) Urine Protein Negative (Negative) Urine Ketones Negative (Negative) Urine Blood Negative /uL (Negative) Urine Nitrite Negative (Negative) Urine Bilirubin Negative (Negative) Urine Urobilinogen Normal mg/dL (Negative) Urine Leukocyte Esterase Negative /uL (Negative) Urine RBC <1 /hpf (0 - 4) Urine Microscopic WBC 1 /HPF (0-5) Urine Squamous Epithelial Cells Few /hpf (<5) Urine Bacteria None seen /hpf (None Seen) Urine Glucose 4+ mg/dL (Normal) H Labs and/or images reviewed: Labs reviewed by me, Image(s) reviewed by me Assessment/Plan Assessment/Plan Acute myocardial infarction , troponin 3200, treatment per ACS protocol, cardiology consult by Dr. Green appreciated, Status post left heart catheterization by Dr. Spike Green on 06/13/2025 with the following findings Normal left main. Left anterior descending artery in the mid region is narrowed, 70% to 80% Circumflex and obtuse marginal normal. Right coronary artery has been noted. There is an underlying critical 99% narrowing of the proximal region. Subsequently distally, it has 99% narrowing. Continue, metoprolol, Jardiance Rule out structural heart disease Pertinent family history for cardiovascular disease Qsi-dcndcka-gstqqfuqu diabetes mellitus Hypertension Dyslipidemia: Lipitor Obesity Time spent 70 minutes Advanced care planning time 20 minutes Patient is seen in the ICU Cardiology Dr. Spike Green advised transferred to higher level of care, but the patient insisting only to go to [place] Patient currently on amiodarone drip Integrilin drip aspirin Brilinta Social service consult placed for transfer for higher level of care Plan discussed with: Patient My Orders Orders - MARLENE NASCIMENTO MD Procedure Category Date Status Time Discharge DISCHARGE 06/13/25 Transmitted 17:02 Date of Service: Jun 14, 2025 Billing Provider: MARLENE NASCIMENTO MD Common Visit Codes: [id number] CARE 30-74 MIN MARLENE NASCIMENTO MD Jun 14, 2025 08:37
--- NOTE | 2025-06-14 09:16 | DVHDS2 ---
Discharge Summary Date of Admission Jun 11, 2025 at 19:59 Date of Discharge: Jun 13, 2025 Admitting Diagnosis Chest pain Wounds: Left heart catheterization Labs/Diagnostic Data: Laboratory Results Test 06/14/25 06:31 06/14/25 02:59 06/13/25 20:48 06/12/25 05:20 POC Glucose 195 mg/dl (70-106) White Blood Count 11.8 10^3/uL (4.4-10.8) Red Blood Count 4.05 10^6/uL (4.0-5.20) Hemoglobin 14.0 g/dL (12.2-16.2) Hematocrit 41.2 % (36.0-46.0) Mean Corpuscular Volume 101.8 fL (80.0-100.0) Mean Corpuscular Hemoglobin 34.6 pg (28.0-32.0) Mean Corpuscular Hemoglobin Concent 34.0 g/dL (32.0-36.0) Red Cell Distribution Width 13.3 % (11.8-14.3) Platelet Count 213 10^3/uL (140-450) Mean Platelet Volume 9.6 fL (6.9-10.8) Neutrophils (%) (Auto) 89.1 % (37.0-80.0) Lymphocytes (%) (Auto) 6.3 % (10.0-50.0) Monocytes (%) (Auto) 4.2 % (0.0-12.0) Eosinophils (%) (Auto) 0.0 % (0.0-7.0) Basophils (%) (Auto) 0.4 % (0.0-2.0) Neutrophils # (Auto) 10.6 10 ^3/uL (1.6-8.6) Lymphocytes # (Auto) 0.7 10 ^3/uL (0.4-5.4) Monocytes # (Auto) 0.5 10 ^3/uL (0-1.3) Eosinophils # (Auto) 0 10 ^3/uL (0-0.8) Basophils # (Auto) 0 10 ^3/uL (0-0.2) Nucleated Red Blood Cells 0.0 % Prothrombin Time 11.8 sec (9.3-11.8) Prothrombin Time INR 1.13 (0.9-1.15) Activated Partial Thromboplast Time 28.8 SEC (24.5-34.5) Sodium Level 135 mmol/L (136-145) Potassium Level 4.3 mmol/L (3.5-5.1) Chloride Level 101 mmol/L (98-107) Carbon Dioxide Level 16 mmol/L (20-31) Anion Gap 18 (5-15) Blood Urea Nitrogen 14 mg/dL (9-23) Creatinine 0.88 mg/dL (0.550-1.02) Glomerular Filtration Rate Calc 72 mL/min (>90) BUN/Creatinine Ratio 15.9 (10.0-20.0) Serum Glucose 200 mg/dL (74-106) Calcium Level 8.9 mg/dL (8.7-10.4) Total Bilirubin 0.6 mg/dL (0.2-1.0) Aspartate Amino Transferase (AST) 161 U/L (13-40) Alanine Aminotransferase (ALT) 57 U/L (7-40) Alkaline Phosphatase 87 U/L (46-116) Troponin I High Sensitivity 63319 ng/L (</=34) Total Protein 7.0 g/dL (5.7-8.2) Albumin 4.1 g/dL (3.2-4.8) Magnesium Level 1.9 mg/dL (1.6-2.6) Hemoglobin A1c 7.7 % A1C (<5.7) Triglycerides Level 215 mg/dL (< 150) Cholesterol Level 169 mg/dL (< 200) LDL Cholesterol 95 mg/dL (< 100) HDL Cholesterol 57 mg/dL (40-59) Thyroid Stimulating Hormone (TSH) 1.55 uIU/mL (0.55-4.78) Test 06/11/25 18:51 06/11/25 18:27 B-Type Natriuretic Peptide 53.55 pg/mL (0-100) Urine Color Colorless (Yellow) Urine Clarity Clear (Clear) Urine pH 5.5 (5.0-9.0) Urine Specific [place] 1.020 (1.001-1.035) Urine Protein Negative (Negative) Urine Ketones Negative (Negative) Urine Blood Negative /uL (Negative) Urine Nitrite Negative (Negative) Urine Bilirubin Negative (Negative) Urine Urobilinogen Normal mg/dL (Negative) Urine Leukocyte Esterase Negative /uL (Negative) Urine RBC <1 /hpf (0 - 4) Urine Microscopic WBC 1 /HPF (0-5) Urine Squamous Epithelial Cells Few /hpf (<5) Urine Bacteria None seen /hpf (None Seen) Urine Glucose 4+ mg/dL (Normal) Other Laboratory Tests 06/14/25 02:59 Brief Hx & Hospital Course: 70-year-old female with a history of hypertension hypercholesterolemia diabetes came in for chest pain found to have acute MT with a troponin 3200 treated per ACS protocol left heart catheterization by Dr. Green and Dr. Vazquez. Found to have severely occluded RCA and had dissection during the procedure and the lamp cleaner advised transferred to higher level of care. The patient is in the ICU along with the discussed with them the plan for transfer, general condition stable at the time of transfer Consults/Reason for consult Cardiology Dr. Green Cardiology Dr. Vazquez Operations or Procedures Left heart catheterization Condition at Discharge: Fair Final Diagnosis/Problems List Reconstruction and occluded RCA and dissection of RCA Discharge Disposition: Acute Care Facility Discharge Instruct/Medications Diet: Cardiac 2g Na,low cholest Activity: See Comment Medications: see list Scheduled Amlodipine Besylate (Amlodipine Besylate), 1 TAB PO DAILY, (Reported) Empagliflozin (Jardiance), 1 TAB PO DAILY, (Reported) Glipizide (Glipizide), 1 TAB PO BID, (Reported) Losartan Potassium (Losartan Potassium), 1 TAB PO DAILY, (Reported) Lovastatin (Lovastatin), 1 TAB PO DAILY, (Reported) Metformin Hydrochloride (Metformin Hcl), 2 TAB PO BIDWM, (Reported) Scheduled PRN Docusate Sodium (Docusate Sodium), 1 CAP PO QHSP PRN for FOR CONSTIPATION, (Reported) Miscellaneous Medications Benzonatate (Benzonatate), CAP PO, (Reported) 39 (Time taken for discharge summary 39 minutes) Discharge Statement: "Patient was advised to return to the ER or call 911 if any headaches, dizziness, shortness of breath, chest pain, abdominal pain, bleeding, fevers, or worsening of medical condition. Patient was counseled about treatment plan, medications, possible side effects, patientverbalized understanding. All questions were answered to the best of my ability. This discharge took greater then 30 minutes in planning, reviewing documentation, counseling the patient, and discussing with other team members." ASSESSMENT ASSESSMENT Hospital Course Marginally improved Assessment Reconstruction and occluded RCA and dissection of RCA Date of Service: Jun 14, 2025 Billing Provider: MARLENE NASCIMENTO MD Common Visit Codes: 83924-FIY/OBS DISCH DAY >30min MARLENE NASCIMENTO MD Jun 14, 2025 09:16
[2025-06-14] MEDS: SODIUM CHLORIDE 0.9% 1,000 ML IV ONE ×2 (12:38→12:39)
[2025-06-14] MEDS: NOREPINEPHRINE 8 MG/250ML KIT 250 ML IV SCH (16:01)
--- NOTE | 2025-06-14 16:24 | DVHSR ---
APPROVED REPORT EXAM: Two-dimensional and M-mode echocardiogram with Doppler and color Doppler. Blood Pressure: 97/60 mmHg INDICATION Complex Coronary Intervention RISK FACTORS Height: 4' 10", Weight: 138 DIMENSIONS LVDd4.3 (3.8-5.7cm)LA (2D)3.2 (1.9-4.0cm)Aortic Root2.7 (2.0-3.7cm) LVDs3.8 (2.5-4.0cm)LA (MM) (1.9-4.0cm)Aortic Cusp Exc1.6 (1.5-2.0cm) EF (%) 35.0 (55-70%)Rt. Atrium3.1 (1.9-4.0cm)Asc. Aorta3.5 cm IVSd1.0 (0.7-1.1cm)RV (D)4.3 (1.8-2.4cm) PWd1.0 (0.7-1.1cm) Mitral Valve MitralMitral Stenosis E wave1.00m/sMV Mean GR.mmHg A wave1.00m/sMV Peak GR.mmHg E/A ratio1.02D MVAcm2 Aortic Valve Aortic ValveAortic Stenosis V10.80m/Rocio Mean GR.5mmHg V21.70m/Rocio Peak GR.12mmHg LVOT Diameter2.0 (1.8-2.4cm)Doppler AVA1.48cm2 Pulmonic Valve V20.60m/s Tricuspid Valve TR Velocity2.10m/s [id number] Conclusion 1. MODERATELY DILATED RV AND IS SLIGHTLY HYPOKINETIC 2. LV EF IS 40% AND IS GROSSLY UNCHANED FROM PREVIOUS ECHO PRE INTERVENTION 3. NORMAL VALVES 4. NO EFFUSION
--- NOTE | 2025-06-14 16:50 | DVHOP ---
DATE OF SURGERY: 06/13/2025 TECHNIQUE PERFORMED: * Right coronary artery angiography. * Passing the Runthrough wire to proximal RCA. * The insertion of the Choice Floppy wire into the proximal RCA for insertion of the 2.0 balloon to facilitate the passage of the wire. (The wire passed to past the middle second lesion, but 1 cm below the second lesion, but did not go through, so it was pulled out). INDICATIONS: As follows: The patient had critical stenosis in the proximal RCA, total of two lesions proximal and 2 cm distal to the proximal lesion. It was very critical 99.9. With underlying acute plaque rupture and the thrombus, the patient had throat pain. Non-STEMI. Troponin more than 2200. DESCRIPTION OF PROCEDURE: We have put a 6-British JL4 guiding catheter and Angiomax also has been given. The Runthrough wire was passed past the first lesion, did not cross the second lesion. So, then the balloon was passed, which was then inserted after putting the Choice wire, but it just passed the second lesion 1 cm, but did not go through. GRAEME grade 3 flow has still been noticed. Balloon, wire and catheter all have been discontinued. The procedure had been completed without any complication. Now, the case has been referred to Dr. Vazquez for further coronary intervention as I was unable to get a wire through. Leny Green MD MP/KEENAN/AMILCAR TID: [id number] RECEIPT: [id number]
--- NOTE | 2025-06-14 19:10 | DVHPN2 ---
Progress Note - Dictate Date Seen: Jun 14, 2025 Medical Necessity Reason Pt with a Central, PICC or Fol: No Subjective Patient was seen and evaluated in follow up in the ICU. Patient underwent left heart catheter, teller selective left and right coronary artery angiography, attempt to do the intervention on the right coronary artery by putting the wire only. Right coronary artery angiography, passing the Runthrough wire to proximal RCA. The insertion of the Choice Floppy wire into the proximal RCA for insertion of the 2.0 balloon to facilitate the passage of the wire. (The wire passed past the middle second lesion, but 1 cm below the second lesion, but did not go through, so it was pulled out). The procedure had been completed without any complication. Now, the case has been referred to Dr. Vazquez for further coronary intervention as I was unable to get a wire through. Echocardiogram showed an EF of 40%. WBC 11.8, CO2 16, GLUC 209, AST 161, ALT 57, TROP [id number]. vital signs Vital Sign Date Time Temp Pulse Resp B/P (MAP) Pulse Ox O2 Delivery O2 Flow Rate FiO2 06/14/25 17:38 100.2 91 15 94 06/14/25 16:01 88/46 06/14/25 12:00 Room Air* 0 97 21 Total Intake and Output 06/13/25 06/13/25 06/14/25 15:00 23:00 07:00 Intake Total 483.15 ml 897.28 ml Balance 483.15 ml 897.28 ml medications Current Medications Medications Dose Ordered Sig/Reggie Route Start Time Stop Time Status Last Admin Dose Admin Morphine Sulfate 2 mg Q30M PRN IV 06/11/25 20:00 06/12/25 08:30 2 MG Diagnostic Test (Pha) 1 strip Q6HR 06/12/25 00:00 06/14/25 13:22 1 STRIP Insulin Human Regular Q6HR SC 06/12/25 00:00 06/14/25 13:23 4 UNITS Dextrose 50 ml UD PRN IV 06/11/25 20:30 Ondansetron HCl 4 mg Q4HP PRN IV 06/11/25 20:30 06/12/25 08:29 4 MG Acetaminophen 650 mg Q6HP PRN PO 06/11/25 20:30 06/13/25 20:44 650 MG Atorvastatin Calcium 80 mg HS PO 06/13/25 22:00 06/13/25 22:28 80 MG Aspirin 81 mg DAILY PO 06/14/25 10:00 06/14/25 10:23 81 MG Ticagrelor 90 mg BID PO 06/13/25 22:00 06/14/25 10:23 90 MG Eptifibatide 100 ml @ 5.5 mls/hr [id number] IV 06/13/25 19:00 06/14/25 09:39 5.5 MLS/HR Diphenhydramine HCl 12.5 mg Q4HP PRN IV 06/13/25 19:00 Amiodarone HCL/ Dextrose 200 ml @ 16.66 mls/ hr Q12H IV 06/14/25 01:45 06/14/25 09:38 16.66 MLS/HR Pantoprazole Sodium 40 mg BID IV 06/13/25 22:00 06/14/25 10:23 40 MG Metoprolol Tartrate 25 mg BID PO 06/13/25 22:00 Hold 06/13/25 22:30 25 MG Sodium Chloride 1,000 ml @ 100 mls/hr Q10H IV 06/14/25 01:15 06/14/25 14:42 100 MLS/HR Norepinephrine Bitartrate 250 ml @ 3.75 mls/hr Q24H IV 06/14/25 11:45 06/14/25 16:01 3.75 MLS/HR objective GENERAL: Alert and oriented x 3. No acute distress. Obese. EYES: PERRL, EOMI. Anicteric. HENT: Moist mucous membranes. LUNGS: Clear to auscultation bilaterally. CARDIOVASCULAR: Regular rate and rhythm. ABDOMEN: Soft, nontender and nondistended. EXTREMITIES: No edema. NEUROLOGIC: No focal neurological deficits. SKIN: Warm, dry. laboratory and microbiology Laboratory Tests 06/14/25 02:59 Test 06/14/25 02:59 Range/Units Serum Glucose 200 H 74-106 mg/dL Problem List Acute myocardial infarction. Rule out structural heart disease. Pertinent family history for cardiovascular disease. Pdc-bkvfycr-xyjorbxub diabetes mellitus. Hypertension. Dyslipidemia. Obesity. Assessment/Plan Continued all current supportive medical care. IV Amiodarone. Aspirin, Lipitor, Brilinta, Metoprolol. Morphine for pain management. GI prophylactics. Additional plan as per the hospital course. Critical care time of 45 minutes provided to include time spent evaluation of patient at bedside, when appropriate patient/family education for diagnosis, treatment plan, review of pertinent medical information and discussion of care with specialty providers and PCP. Dietary Evaluation Review Recommendations by RD: Dietary education by RD Comments: 1) Change diet from 2g Na to 60g CCHO cardiac diet 2) Encourage optimal PO intake 3) Refer to outpatient RD/CDCES for diabeted education 4) Follow-up with cardiology 5) Continue to monitor I&O, labs, and skin integrity Expected Outcomes/Goals: 1) appetite and labs to improve 2) gradual wt loss 3) f/u in 3-5 days Plan discussed with: Patient MARIANO GARNER MD Jun 14, 2025 18:12
--- NOTE | 2025-06-14 19:25 | DVHOP ---
DATE OF SURGERY: 06/14/2025 PRIMARY SURGEON: Dr. Vazquez. OTHER SURGEON: Leny Green MD PREOPERATIVE DIAGNOSIS: Acute 100% occlusion of the right coronary artery at the mid region. POSTOPERATIVE DIAGNOSES: Dissection of the right coronary artery and reconstruction of the right coronary artery and GRAEME grade 2 flow has been obtained. Total of four stents have been deployed. DESCRIPTION OF PROCEDURE: During this procedure, initially the JL4 guiding catheter passed, subsequently the AL1 catheter was passed and several different wires were used including the Whisper wire and the patient ultimately went into the true lumen and with the help of the intravascular ultrasound, a total of 4 stents have been deployed; one in the posterior descending artery, one in the posterolateral branch, one in the mid distal region of the right coronary artery, the fourth one in the most proximal region. The patient developed ventricular fibrillation. She was also shocked. TECHNIQUES PERFORMED: * Total of 4 stents deployment in the right coronary artery. * Intravascular ultrasound. * Use of the GuideLiner. * Balloon angioplasty of the right coronary artery and intracoronary administration of the Integrilin. Leny Green MD MP/DOLLY/AMILCAR TID: [id number] RECEIPT: [id number] [facility]
--- NOTE | 2025-06-14 20:08 | DVHDS ---
DATE OF DISCHARGE: 06/14/2025 DATE OF TRANSFER TO [facility]: 06/14/2025 The patient has come here in the Emergency Room with chest pain on 06/11, 1 hour before her arrival, substernal. The patient has a history of diabetes, hypertension, hyperlipidemia, thyroid problem, and no smoke, no alcohol, no drugs. 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 The patient's troponin has gone up to more than 137 and it went up to 2756. The patient was taken to lab scientist. She was on heparin drip, now we went up through the radial artery approach. The procedure of angiography was done, and I completed the angiogram and was found to have critical narrowing of the right coronary artery, a total of two locations; one in the proximal, one in the mid region, unable to get a wire through the second region. So, I put a balloon and tried to get a wire through, but unable to get through it. So, it did not go through. I checked under fluoroscopy, artery was still widely open. Then, I called Dr. Vazquez to do the procedure. Dr. Vazquez arrived in the lab scientist when he did angiogram. Now, the right coronary artery has been 100% occluded. He has put tremendous effort and he deployed 4 stents; one was into the mid distal region of the right coronary artery, one was in the posterior descending artery, one in the posterolateral branch, one in the most proximal region of the right coronary artery. GRAEME grade 2 flow has been obtained. Now, recent troponin has gone up to 13,865. EKG revealed now QS pattern in II, III, and aVF. ST elevated and lateral lead has come down. The first echo was done, revealed an ejection fraction in the range of 35%-40%. Second echo revealed ejection fraction unchanged in the range of 40%, but it has been noted that the right ventricle is dilated, which appeared to be a new finding. The patient remains hemodynamically stable. She was continued on aspirin, Brilinta, beta-bridger, metoprolol. IV fluid has been given 2 liters wide open and a normal saline at 100 mL/hr. Two sons were here, the patent's is here all the time. All have been counseled many, many times by me. [facility] did not accept the patient because there is no approval. So, I called [facility] myself. Total time today I spent is more than 4 hours on this case, one to one. I was able to talk to the on-call mailroom supervisor. He was very extremely cooperative and he accepted the patient. His name is Dr. Yann Cr and he is a [facility] mailroom supervisor. The patient's have been counseled and informed them, they are willing to go. Nursing staff have been discussed in person several times. DIAGNOSES: * The patient came with non-ST elevation myocardial infarction. * The patient now has got the right ventricular infarction. The GRAEME grade 2 flow has been established by deploying 4 stents in the right coronary artery. * History of diabetes, history of hypertension, history of dyslipidemia. The patient will be going to [facility] in [place], room number 308, and the contact number over there is [phone]. The address is [address] [place] [address]. I have been informed by the staff, Phylicia, on [phone]. Discussion done with top case assembler, Dary, many times. So, the patient will be brought in by air ambulance because of underlying nonstop choking sensation in the throat because of the right ventricular dilatation, elevation of the troponin, abnormal EKG, GRAEME grade 2 flow in the right coronary artery. She does definitely qualify to go via helicopter. I have given my cell phone number to the patient, her , and also to [facility]. Leny Green MD MP/TONYA/GEE TID: [id number] RECEIPT: [id number] ALBERTO
[2025-06-14] MEDS: EPTIFIBATIDE DRIP(0.75MG/ML) 100 ML IV SCH (20:47)
[2025-06-15] VITALS (33 sets, daily range): BP systolic 92–119; BP diastolic 46–62; PULSE 72–96; RESP 15–29; TEMP 98–99.4; O2SAT 95–99
[2025-06-15 04:52] LABS: Albumin 3.4 g/dL (3.2-4.8); Alkaline Phosphatase 66 U/L (46-116); Anion Gap 12 (5-15); BUN/Creatinine Ratio 18.2 (10.0-20.0); Blood Urea Nitrogen 12 mg/dL (9-23); Potassium 3.5 mmol/L (3.5-5.1); Sodium 139 mmol/L (136-145); Total Protein 5.8 g/dL (5.7-8.2)
[2025-06-15 04:53] LABS: Bilirubin, Total 0.7 mg/dL (0.2-1.0)
[2025-06-15 05:01] LABS: Alanine Aminotransferase 52 U/L (7-40); Calcium 7.9 mg/dL (8.7-10.4); Carbon Dioxide 19 mmol/L (20-31); Chloride 108 mmol/L (98-107); Glucose 140 mg/dL (74-106)
[2025-06-15 05:18] LABS: Hematocrit 32.9 % (36.0-46.0); Hemoglobin 11.5 g/dL (12.2-16.2); Mean Corpuscular Hemoglobin 35.3 pg (28.0-32.0); Mean Corpuscular Volume 101.5 fL (80.0-100.0); Nucleated Red Blood Cells % 0.1 %
--- NOTE | 2025-06-15 05:38 | DVH ---
CHEST RADIOGRAPH Indication: CHF/Acute OR Technique: Single frontal view of the chest was obtained COMPARISON: XY CHEST PORTABLE on DOS: 06/14/25, XY CHEST PORTABLE on DOS: 06/11/25, XY CHEST TWO VIEWS ROUTINE on DOS: 07/07/24, CXR2 on DOS: 02/02/22, CHEST TWO VIEWS ROUTINE on DOS: 02/02/22 FINDINGS: Lines and Tubes: None Lungs: Clear Pleura: No effusion. No pneumothorax. Cardiomediastinal contours: Unremarkable Bones: Unremarkable IMPRESSION: 1. No acute disease.
--- NOTE | 2025-06-15 07:45 | DVHPN2 ---
Reviewed: Care Plan, H&P, Labs, Medications, Previous Orders, Radiology Changes from previous H/P or p: No Changes Objective Vitals Vital Signs Date Time Temp Pulse Resp B/P (MAP) Pulse Ox O2 Delivery O2 Flow Rate FiO2 06/15/25 06:45 76 20 106/54 (71) 96 06/15/25 06:00 Room Air* 0 21 06/15/25 04:00 98.0 98.0 Intake/Output Intake and Output 06/15/25 07:00 Intake Total 4713.68 ml Balance 4713.68 ml IV Total 4713.68 ml Medications Current Medications Medications Dose Ordered Sig/Reggie Route Start Time Stop Time Status Last Admin Dose Admin Morphine Sulfate 2 mg Q30M PRN IV 06/11/25 20:00 06/12/25 08:30 2 MG Diagnostic Test (Pha) 1 strip Q6HR 06/12/25 00:00 06/14/25 23:47 1 STRIP Insulin Human Regular Q6HR SC 06/12/25 00:00 06/15/25 05:27 2 UNITS Dextrose 50 ml UD PRN IV 06/11/25 20:30 Ondansetron HCl 4 mg Q4HP PRN IV 06/11/25 20:30 06/12/25 08:29 4 MG Acetaminophen 650 mg Q6HP PRN PO 06/11/25 20:30 06/15/25 05:43 650 MG Atorvastatin Calcium 80 mg HS PO 06/13/25 22:00 06/14/25 20:46 80 MG Aspirin 81 mg DAILY PO 06/14/25 10:00 06/14/25 10:23 81 MG Ticagrelor 90 mg BID PO 06/13/25 22:00 06/14/25 20:45 90 MG Diphenhydramine HCl 12.5 mg Q4HP PRN IV 06/13/25 19:00 Amiodarone HCL/ Dextrose 200 ml @ 16.66 mls/ hr Q12H IV 06/14/25 01:45 06/14/25 21:16 16.66 MLS/HR Pantoprazole Sodium 40 mg BID IV 06/13/25 22:00 06/14/25 20:45 40 MG Metoprolol Tartrate 25 mg BID PO 06/13/25 22:00 Hold 06/13/25 22:30 25 MG Sodium Chloride 1,000 ml @ 100 mls/hr Q10H IV 06/14/25 01:15 06/15/25 00:55 100 MLS/HR Norepinephrine Bitartrate 250 ml @ 3.75 mls/hr Q24H IV 06/14/25 11:45 06/14/25 16:01 3.75 MLS/HR Eptifibatide 100 ml @ 5.5 mls/hr [id number] IV 06/14/25 20:45 06/15/25 03:12 5.5 MLS/HR Laboratory Results Laboratory Tests 06/15/25 03:32 Chemistry Test 06/15/25 03:32 Albumin 3.4 g/dL (3.2-4.8) Calcium Level 7.9 mg/dL (8.7-10.4) L Total Protein 5.8 g/dL (5.7-8.2) LFT Test 06/15/25 03:32 Alanine Aminotransferase (ALT) 52 U/L (7-40) H Alkaline Phosphatase 66 U/L (46-116) Aspartate Amino Transferase (AST) 263 U/L (13-40) H Total Bilirubin 0.7 mg/dL (0.2-1.0) Urinalysis Test 06/11/25 18:27 Urine Color Colorless (Yellow) Urine Clarity Clear (Clear) Urine pH 5.5 (5.0-9.0) Urine Specific [place] 1.020 (1.001-1.035) Urine Protein Negative (Negative) Urine Ketones Negative (Negative) Urine Blood Negative /uL (Negative) Urine Nitrite Negative (Negative) Urine Bilirubin Negative (Negative) Urine Urobilinogen Normal mg/dL (Negative) Urine Leukocyte Esterase Negative /uL (Negative) Urine RBC <1 /hpf (0 - 4) Urine Microscopic WBC 1 /HPF (0-5) Urine Squamous Epithelial Cells Few /hpf (<5) Urine Bacteria None seen /hpf (None Seen) Urine Glucose 4+ mg/dL (Normal) H Labs and/or images reviewed: Labs reviewed by me, Image(s) reviewed by me Assessment/Plan Assessment/Plan Acute myocardial infarction , troponin 3200, treatment per ACS protocol, cardiology consult by Dr. Green appreciated, Status post left heart catheterization by Dr. Spike Green on 06/13/2025 with the following findings Normal left main. Left anterior descending artery in the mid region is narrowed, 70% to 80% Circumflex and obtuse marginal normal. Right coronary artery : underlying critical 99% narrowing of the proximal region. Subsequently distally, it has 99% narrowing. Continue, metoprolol, Jardiance Rule out structural heart disease Pertinent family history for cardiovascular disease Eiw-yggbinw-bwlldzpdp diabetes mellitus Hypertension Dyslipidemia: Lipitor Obesity Time spent 70 minutes Advanced care planning time 20 minutes Patient is seen in the ICU Cardiology Dr. Spike Green advised transferred to higher level of care, but the patient insisting only to go to [facility] Patient currently on amiodarone drip Integrilin drip aspirin Brilinta Social service consult placed for transfer for higher level of care Awaiting transportation to [facility] Plan discussed with: Patient My Orders Orders - MARLENE NASCIMENTO MD Procedure Category Date Status Time Discharge DISCHARGE 06/14/25 Transmitted 09:10 * Enamel Cracker CONS 06/14/25 Transmitted Consult 09:11 * Enamel Cracker CONS 06/14/25 Transmitted Consult * Enamel Cracker CONS 06/14/25 Transmitted Consult Insert Midline ORDERS 06/14/25 Transmitted 15:21 Insert Midline ORDERS 06/14/25 Transmitted 15:21 Date of Service: Jun 15, 2025 Billing Provider: MARLENE NASCIMENTO MD Common Visit Codes: 33034-RIWCSAAH CARE 30-74 MIN MARLENE NASCIMENTO MD Jun 15, 2025 07:45
--- NOTE | 2025-06-15 21:32 | DVHPN2 ---
Progress Note - Dictate Date Seen: Jun 15, 2025 Medical Necessity Reason Pt with a Central, PICC or Fol: No Subjective Patient was seen and evaluated in follow up in the ICU. The patient's troponin has gone up to more than 137 and it went up to 2756. The patient was taken to photofinishing laboratory worker. She was on heparin drip, now we went up through the radial artery approach. The procedure of angiography was done, and I completed the angiogram and was found to have critical narrowing of the right coronary artery, a total of two locations; one in the proximal, one in the mid region, unable to get a wire through the second region. So, I put a balloon and tried to get a wire through, but unable to get through it. So, it did not go through I checked under fluoroscopy, artery was still widely open. Then, I called Dr. Vazquez to do the procedure. Dr. Vazquez arrived in the photofinishing laboratory worker when he did angiogram. Now, the right coronary artery has been 100% occluded. He has put tremendous effort and he deployed 4 stents; one was into the mid distal region of the right coronary artery, one was in the posterior descending artery, one in the posterolateral branch, one in the most proximal region of the right coronary artery. GRAEME grade 2 flow has been obtained. Now, recent troponin has gone up to 13,865. EKG revealed now QS pattern in II, III, and aVF. ST elevated and lateral lead has come down. The first echo was done, revealed an ejection fraction in the range of 35%-40%. Second echo revealed ejection fraction unchanged in the range of 40%, but it has been noted that the right ventricle is dilated, which appeared to be a new finding. The patient remains hemodynamically stable. She was continued on aspirin, Brilinta, beta-bridger, metoprolol. IV fluid has been given 2 liters wide open and a normal saline at 100 mL/hr. Two sons were here, the patent's is here all the time. All have been counseled many, many times by me. [facility] did not accept the patient because there is no approval. So, I called [facility] myself. Total time today I spent is more than 4 hours on this case, one to one. I was able to talk to the on-call gold and silver assayer He was very extremely cooperative and he accepted the patient. His name is Dr. Yann Cr and he is a [facility] gold and silver assayer. The patient's have been counseled and informed them, they are willing to go. Nursing staff have been discussed in person several times. The patient will be going to [facility] in [place], room number 308, and the contact number over there is [phone]. [address] address [address] [place] [address]. I have been informed by the staff, Phylicia, on [phone]. Discussion done with senior case manager, Dary, many times. So, the patient will be brought in by air ambulance because of underlying nonstop choking sensation in the throat because of the right ventricular dilatation, elevation of the troponin, abnormal EKG, GRAEME grade 2 flow in the right coronary artery. She does definitely qualify to go via helicopter. I have given my cell phone number to the patient, her , and also to [facility]. vital signs Vital Sign Date Time Temp Pulse Resp B/P (MAP) Pulse Ox O2 Delivery O2 Flow Rate FiO2 06/15/25 08:00 98.8 80 20 118/55 (76) 97 98.8 06/15/25 07:30 Nasal Cannula* 1 24 Total Intake and Output 06/14/25 06/14/25 06/15/25 15:00 23:00 07:00 Intake Total 2977.28 ml 881.28 ml 855.12 ml Balance 2977.28 ml 881.28 ml 855.12 ml objective GENERAL: Alert and oriented x 3. No acute distress. Obese. EYES: PERRL, EOMI. Anicteric. HENT: Moist mucous membranes. LUNGS: Clear to auscultation bilaterally. CARDIOVASCULAR: Regular rate and rhythm. ABDOMEN: Soft, nontender and nondistended. EXTREMITIES: No edema. NEUROLOGIC: No focal neurological deficits. SKIN: Warm, dry. laboratory and microbiology Laboratory Tests 06/15/25 03:32 Test 06/15/25 03:32 Range/Units Serum Glucose 140 H 74-106 mg/dL Problem List Acute myocardial infarction. Pertinent family history for cardiovascular disease. Pyg-thcbqrx-ivqninebg diabetes mellitus. Hypertension. Dyslipidemia. Obesity. Non-ST elevation myocardial infarction. Right ventricular infarction. The GRAEME grade 2 flow has been established by deploying 4 stents in the right coronary artery. History of diabetes, history of hypertension, history of dyslipidemia. Assessment/Plan Continued all current supportive medical care. IV Amiodarone. Aspirin, Lipitor, Brilinta, Metoprolol. Morphine for pain management. GI prophylactics. Transfer to [facility]. Additional plan as per the hospital course. Critical care time of 240 minutes provided to include time spent evaluation of patient at bedside, when appropriate patient/family education for diagnosis, treatment plan, review of pertinent medical information and discussion of care with specialty providers and PCP. Dietary Evaluation Review Recommendations by RD: Dietary education by RD Comments: 1) Change diet from 2g Na to 60g CCHO cardiac diet 2) Encourage optimal PO intake 3) Refer to outpatient RD/CDCES for diabeted education 4) Follow-up with cardiology 5) Continue to monitor I&O, labs, and skin integrity Expected Outcomes/Goals: 1) appetite and labs to improve 2) gradual wt loss 3) f/u in 3-5 days Plan discussed with: Patient MARIANO GARNER MD Jun 15, 2025 13:09
--- NOTE | 2025-06-16 07:26 | ECG ---
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
--- NOTE | 2025-06-16 14:15 | ECG ---
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
== END 2025-06-15 10:12 | disposition short-term general hospital (02) | DRG 321 ==
LOC: EDBD 18:22 → ER 18:22 → OVERFLOW 19:59 → TELE-EAST 20:00 → ICU WEST 06-13 18:47
PROVIDERS: ADMIT Family Medicine; ATTEND Family Medicine
PROC: 5A2204Z Restoration of Cardiac Rhythm, Single (ICD-10-PCS; principal; 2025-06-13)
PROC: 027037Z Dilation of Coronary Artery, One Artery with Four or More Drug-eluting Intraluminal Devices, Percutaneous Approach (ICD-10-PCS; 2025-06-13)
PROC: B240ZZ3 Ultrasonography of Single Coronary Artery, Intravascular (ICD-10-PCS; 2025-06-13)
PROC: 03HY32Z Insertion of Monitoring Device into Upper Artery, Percutaneous Approach (ICD-10-PCS; 2025-06-13)
PROC: 4A023N7 Measurement of Cardiac Sampling and Pressure, Left Heart, Percutaneous Approach (ICD-10-PCS; 2025-06-13)
PROC: B211YZZ Fluoroscopy of Multiple Coronary Arteries using Other Contrast (ICD-10-PCS; 2025-06-13)
PROC: B215YZZ Fluoroscopy of Left Heart using Other Contrast (ICD-10-PCS; 2025-06-13)
DX: I21.4 Non-ST elevation (NSTEMI) myocardial infarction (principal); I25.42 Coronary artery dissection; I49.01 Ventricular fibrillation; N17.9 Acute kidney failure, unspecified; R57.9 Shock, unspecified; E66.9 Obesity, unspecified; R12 Heartburn; I10 Essential (primary) hypertension; E11.9 Type 2 diabetes mellitus without complications; R74.01 Elevation of levels of liver transaminase levels; E78.00 Pure hypercholesterolemia, unspecified; Z82.49 Family history of ischemic heart disease and other diseases of the circulatory system; Z83.3 Family history of diabetes mellitus; Z79.84 Long term (current) use of oral hypoglycemic drugs; Z68.28 Body mass index [BMI] 28.0-28.9, adult
CPT/HCPCS: 36415; 71045; 80048; 80053; 80061; 81001; 82962; 83036; 83735; 83880; 84443; 84484; 85025; 85610; 85730; 86850; 86900; 86901; 87081; 92941; 92978; 93005; 93306; 93458; 96360; 99152; C1769; C1874; G0378; J1815; J2250; J2405; J2470; J3490; Q9967